=== PATIENT | male | born 1945 | race Caucasian/White ===

== ENCOUNTER 2024-11-18 13:48 | Emergency (ER) | payer MEDICARE, SELFPAY ==
[2024-11-18] VITALS (9 sets, daily range): BP systolic 97–145; BP diastolic 56–89; PULSE 78–94; RESP 11–20; TEMP 36.6–36.8; O2SAT 89–97; BMI 18.2
--- NOTE | 2024-11-18 14:44 | XR_ITS ---
Examination: AP chest single view TECHNIQUE: AP portable upright chest single view Exam date and time: November 18, 2024 1452 hours Comparison June 29, 2024 INDICATIONS: Upper abdominal pain coughing congestion shortness of breath today. FINDINGS: COPD with large bullous areas in both lungs Accentuation of bronchovascular markings Normal heart size Early pneumonia right base IMPRESSION: COPD Early pneumonia right base
[2024-11-18] MEDS: KETOROLAC INJ 30 MG/ML VIAL 15 MG IVP (15:03)
[2024-11-18] MEDS: SODIUM CHLORIDE 0.9% 1000 ML 1,000 ML 999 ML IV (15:04)
--- NOTE | 2024-11-18 15:07 | PD.EDABDPN ---
ED Abdominal Pain RME/HPI General Chief Complaint: Abdominal Pain Stated complaint: ABD PAIN Time seen by provider: 11/18/24 14:35 Arrival date/time: 11/18/24 13:48 Limitations: no limitations RME / HPI RME / HPI narrative: DR. LOWERY MAIN ED EVALUATION: 79 year old male presents to the Emergency Department with complaint of upper abdominal pain for approximately one week. Symptoms are moderate. He has an appointment with his doctor, but not till the end of next week so he comes to the emergency department today. He denies increasing shortness of breath, increasing need for oxygen, or cough. He denies postprandial pain. He notes, intermittent, diarrhea, and constipation, with constipated bowel movements. He feels increasing pain at those times. He denies fever, chills, or sweats. He does have some mild to moderate bilateral right upper and left upper abdominal pain. PMHx: COPD on 2L home O2, pneumothorax in 2020, diverticulitis. Social Hx: Former smoker. Related Data Home Medications ?Medication ?Instructions ?Recorded ?Confirmed hydrocodone 10 mg-acetaminophen 1 tab PO Q8H PRN Pain #0 tabs 06/01/17 06/21/21 325 mg tablet albuterol sulfate 90 mcg/actuation 2 puff inhalation TID PRN Wheezing 06/19/21 06/21/21 aerosol inhaler (Ventolin HFA) alendronate 70 mg tablet 70 mg PO QWEEK 06/19/21 06/21/21 baclofen 10 mg tablet 10 mg PO BID 06/19/21 06/21/21 cyclobenzaprine 10 mg tablet 10 mg PO HS 06/19/21 06/21/21 fluticasone furoate 200 1 inh inhalation DAILY 06/19/21 06/21/21 mcg-vilanterol 25 mcg/dose inhalation powder (Breo Ellipta) gabapentin 300 mg capsule 300 mg PO BID 06/19/21 06/21/21 ipratropium 20 mcg-albuterol 100 1 puff inhalation BID 06/19/21 06/21/21 mcg/actuation mist for inhalation (Combivent Respimat) pantoprazole 40 mg tablet,delayed 40 mg PO QDAY 06/19/21 06/21/21 release sucralfate 1 gram tablet 1 g PO BID 06/19/21 06/21/21 Previous Rx's ?Medication ?Instructions ?Recorded hydrocodone 5 mg-acetaminophen 325 1 tab PO BID PRN pain #14 tabs 07/21/23 mg tablet levofloxacin 500 mg tablet 500 mg PO QDAY #4 tabs 02/11/24 prednisone 50 mg tablet 50 mg PO QDAY #7 tabs 06/29/24 Allergies Allergy/AdvReac Type Severity Reaction Status Date / Time No Known Allergies Allergy Verified 06/29/24 12:25 Review of Systems Review of Systems Systems Reviewed: All systems reviewed, normal except as documented Narrative Review of Systems: GEN: No fever, no chills, no weight loss EYES: No discharge, no visual changes, no pain HEENT: No ear pain, no congestion, no sore throat PULM: No shortness of breath, no cough, no congestion CV: No chest pain, no dyspnea on exertion, no palpitations GI: No nausea, no vomiting, + intermittent diarrhea and constipated bowels (see HPI), + upper abdominal pain : No frequency, no urgency and no dysuria MUSC/SKEL: No joint pain, no back pain SKIN: No rash PSYCH: No hallucinations, no depression HEME/LYMPH: No easy bleeding or bruising tendencies NEURO: No weakness, no headache Past Medical History Past Medical History NEUROLOGIC: Positive Neurological Disorders and Migraine RESPIRATORY: Positive Chronic Obstructive Pulmonary Disease (COPD) and Emphysema GASTROINTESTINAL: Positive Gastrointestinal Disorders, Diverticulitis and Gastroesophageal Reflux Disease MUSCULOSKELETAL: Positive Musculoskeletal Disorders and Arthritis ENT: Positive Cataracts OTHER HISTORY: Positive Hospitalization Family History FAMILY HISTORY: Negative Family Psychiatric Problems, Family Respiratory Disorders, Family Cardiac Disorders, Family Gastrointestinal Problems, Family Cancer, Family Surgery or Family Anesthesia Reaction Social History SMOKING STATUS: Former smoker SECOND HAND EXPOSURE: No SUBSTANCE USE: does not use ALCOHOL: Never ED Exam General Limitations: Present no limitations General appearance: Present alert Head Head exam: Present atraumatic Eye Eye exam: Present normal appearance, PERRL and EOMI ENT ENT exam: Present normal exam, normal oropharynx and mucous membranes moist Neck Neck exam: Present normal inspection, full ROM and trachea midline Chest Chest inspection: Present normal inspection and symmetric chest wall rise Respiratory Respiratory exam: Present normal lung sounds bilaterally Cardiovascular Cardiovascular exam: Present regular rate, normal rhythm and normal heart sounds Abdominal Exam Abdominal exam: Present soft, tenderness (mild to moderate bilateral right upper and left upper abdominal pain) and normal bowel sounds Extremities Exam Extremities exam: Present normal inspection and full ROM Back Exam Back exam: Present normal inspection and full ROM Neurological Exam Neurological exam: Present alert, oriented X3 and CN II-XII intact Psychiatric Psychiatric exam: Present normal affect and normal mood Skin Skin exam: Present warm, dry, intact and normal color Course Course Course Narrative: 1800: Patient was signed out to Dr. Alston. Past medical, surgical, social and family history reviewed. Vitals and home medications reviewed. Results and treatment plan discussed. They will assume the care of the patient at this time and will follow the patient, pending gall bladder US, abdomen/pelvis CT, and final disposition. Quality Measures none Orders Category Date Time Status CT Screening NOW Care 11/18/24 16:26 Active MRI Screening NOW Care 11/19/24 04:[address] abdomen pelvis w con Stat Exams 11/18/24 16:26 Completed MR MRCP Stat Exams 11/19/24 Ordered US gall bladder Stat Exams 11/18/24 16:23 Completed XR chest 1V Stat Exams 11/18/24 14:44 Completed CBC Stat Lab 11/18/24 15:00 Completed CMP [Comprehensive Metabolic Panel] Stat Lab 11/18/24 15:00 Completed Lactate (Lactic Acid) Stat Lab 11/18/24 15:00 Completed Lipase Stat Lab 11/18/24 15:00 Completed Procalcitonin Stat Lab 11/18/24 15:00 Completed Ketorolac Inj [Toradol Inj] Med 11/18/24 14:43 Discontinued 15 mg IVP X1 ONE Morphine Inj Med 11/18/24 19:13 Discontinued 2 mg IVP Q30M PRN Ondansetron Inj [Zofran Inj] Med 11/18/24 19:14 Discontinued 4 mg IV X1 ONE Sodium Chloride 0.9% 1000 ml [Ns] 1,000 ml Med 11/18/24 14:43 Discontinued IV 999 mls/hr Vital Signs Vital signs: Vital Signs Temperature 98.3 F 11/18/24 13:50 Pulse Rate 94 11/18/24 13:50 Respiratory Rate 20 11/18/24 13:50 Blood Pressure 117/80 11/18/24 13:50 Pulse Oximetry (%) 97 11/18/24 13:50 Oxygen Delivery Method Nasal Cannula 11/18/24 13:50 Oxygen Flow Rate 4 11/18/24 13:50 Abdominal Pain MDM MDM Narrative MDM Narrative:: I, Marisol Teo, am scribing for and in the presence of Dr. Lowery. Patient data External records reviewed:: [facility] previous records (Reviewed last ED visit dated 06/29/24, discharged with the following: COPD exacerbation.) Clinical information provided by:: patient Social determinants that could affect healthcare access:: other (specify) (Former smoker.) Patient has the following chronic illnesses:: COPD on 2L home O2, pneumothorax in 2020, diverticulitis. How is presenting disease/condition affected by chronic disease/condition?: exacerbated by Evaluation data The following diagnostics were reviewed and interpreted by me:: lab results and radiology exam(s) Lab and/or radiology exams considered but not ordered:: none Interpretation Summary: Procedure(s): XR chest 1V Accession Number(s): [id number] cc: Gonzalo Lowery MD; Chris Martinez MD~ Examination: AP chest single view TECHNIQUE: AP portable upright chest single view Exam date and time: November 18, 2024 1452 hours Comparison June 29, 2024 INDICATIONS: Upper abdominal pain coughing congestion shortness of breath today. FINDINGS: COPD with large bullous areas in both lungs Accentuation of bronchovascular markings Normal heart size Early pneumonia right base IMPRESSION: COPD Early pneumonia right base Dictated By: Chris Martinez MD Medications / Prescriptions Medications or Prescriptions considered but not ordered:: none Medication administrations:: Medication Administration History Discontinued Medications Sodium Chloride (Ns) 1,000 mls @ 999 mls/hr IV .Q1H1M ONE Stop: 11/18/24 15:43 Last Infusion: 11/18/24 16:45 Dose: Infused Documented By: Admin: 11/18/24 15:04 Dose: 999 mls/hr Documented By: VEDA Ketorolac Tromethamine (Ketorolac Inj 30 Mg/Ml Vial) 15 mg IVP X1 ONE Stop: 11/18/24 14:44 Last Admin: 11/18/24 15:03 Dose: 15 mg Documented By: VEDA Morphine Sulfate (Morphine Sulf Inj 10 Mg/Ml Vial) 2 mg IVP Q30M PRN PRN Reason: PAIN Last Admin: 11/19/24 05:40 Dose: 2 mg Documented By: Admin: 11/18/24 23:00 Dose: 2 mg Documented By: Admin: 11/18/24 20:08 Dose: 2 mg Documented By: RICHARD Ondansetron HCl (Ondansetron Inj 2 Mg/Ml Inj 2 Ml) 4 mg IV X1 ONE; Protocol Stop: 11/18/24 19:15 Last Admin: 11/18/24 20:07 Dose: 4 mg Documented By: RICHARD see above Consultations Consultation(s) initiated? (list below): No Diagnosis Differential diagnosis abdominal pain: abdominal pain, constipation, diverticulitis, gastroenteritis, pancreatitis and small bowel obstruction Most likely diagnosis given after review of the tests above:: No official diagnoses at this time, still pending diagnostic tests. Patient signout to the manufacturing supervisor 2nd shift provider. Admission Indicated Admission indicated?: not indicated Explain why admission is indicated or not indicated:: No final disposition plan at this time, still pending diagnostic tests. Patient signout to the manufacturing supervisor 2nd shift provider. Admission Request Was there a request for admission?: No Disposition Plan Disposition Plan: other (specify) (Patient signout to the manufacturing supervisor 2nd shift provider.) Discharge Plan Prescriptions/Referrals Prescriptions/Med Rec: No Action hydrocodone-acetaminophen [Bailey] 10-325 mg Tablet 1 tab PO Q8H PRN (Reason: Pain) Qty: 0 cyclobenzaprine 10 mg tablet 10 mg PO HS alendronate 70 mg tablet 70 mg PO QWEEK Patient Comments: TAKE 1 TABLET BY MOUTH 1 TIME A WEEK baclofen 10 mg tablet 10 mg PO BID Patient Comments: TAKE 1 TABLET BY MOUTH TWICE DAILY WITH FOOD OR MILK Breo Ellipta 200-25 mcg/dose blister with device 1 inh INHALATION DAILY Patient Comments: INHALE 1 PUFF BY MOUTH EVERY DAY Combivent Respimat 20-100 mcg/actuation mist 1 puff INHALATION BID Patient Comments: INHALE 1 PUFF BY MOUTH TWICE DAILY sucralfate 1 gram tablet 1 g PO BID Patient Comments: TAKE 1 TABLET BY MOUTH TWICE DAILY ON AN EMPTY STOMACH pantoprazole 40 mg tablet,delayed release (DR/EC) 40 mg PO QDAY Patient Comments: TAKE 1 TABLET BY MOUTH EVERY DAY gabapentin 300 mg capsule 300 mg PO BID Patient Comments: TAKE 1 CAPSULE BY MOUTH TWICE DAILY albuterol sulfate [Ventolin HFA] 90 mcg/actuation HFA aerosol inhaler 2 puff INHALATION TID PRN (Reason: Wheezing) Patient Comments: INHALE 2 PUFFS BY MOUTH THREE TIMES DAILY NEEDED hydrocodone-acetaminophen 5-325 mg tablet 1 tab PO BID MDD 10 PRN (Reason: pain) Qty: 14 0RF levofloxacin 500 mg tablet 500 mg PO QDAY Qty: 4 0RF prednisone 50 mg tablet 50 mg PO QDAY Qty: 7 0RF Referrals: Luke Saab PA-C [Primary Care Provider] - In 1 week Problem List Clinical Impression: Abdominal pain, Elevated bilirubin Patient/Caregiver Discharge Instructions Print Language: Yakut
[2024-11-18 15:26] LABS: Basophils # (Auto) 0.1 Thou/mm3 (0.0-0.2); Basophils % (Auto) 1 % (0-2.5); Eosinophils # (Auto) 0.1 Thou/mm3 (0.0-0.5); Eosinophils % (Auto) 1 % (0-10); Hematocrit 43.4 % (41.0-53.0); Hemoglobin 14.3 g/dL (13.5-16.0); Immature Granulocytes % (Auto) 0 % (0-0); Immature Granulocytes Auto 0.04 Thou/mm3 (0.00-0.00); Lymphocytes # (Auto) 1.7 Thou/mm3 (1.0-4.8); Lymphocytes % (Auto) 16 % (10-50); Mean Corpuscular HGB Conc 32.9 g/dl (31.0-37.0); Mean Corpuscular Hemoglobin 31.2 pg (25.0-35.0); Mean Corpuscular Volume 95 fL (80-100); Monocytes # (Auto) 0.5 Thou/mm3 (0.0-0.8); Monocytes % (Auto) 5 % (0-12); Neutrophils # (Auto) 8.2 Thou/mm3 (1.8-7.7); Neutrophils % (Auto) 77 % (37-80); Nucleated Red Blood Cell % 0 /100 WBC (0); Platelet Count 386 Thou/mm3 (140-440); RDW Standard Deviation 48.7 fL (35.1-43.9); Red Blood Count 4.58 Miln/mm3 (4.50-5.90); White Blood Count 10.6 Thou/mm3 (3.8-10.6)
[2024-11-18 15:38] LABS: Alanine Aminotransferase 48 U/L (10-49); Albumin/Globulin Ratio 1.4 (1.2-2.2); Alkaline Phosphatase 493 U/L (46-116); Anion Gap 6 (7-16); Aspartate Amino Transferase 30 U/L (0-34); BUN/Creatinine Ratio 13 Ratio (12-20); Bilirubin,Total 2.5 mg/dL (0.3-1.2); Blood Urea Nitrogen 9 mg/dL (9-23); Calcium 9.5 mg/dL (8.3-10.6); Calcium (Corrected) 9.5 mg/dL (8.5-10.1); Carbon Dioxide 28.4 mMol/L (20.0-31.0); Chloride 101 mMol/L (98-107); Creatinine (Component) 0.7 mg/dL (0.6-1.3); Estimated Creatinine Clearance 79.6 mL/min (>60); Globulin 2.9 gm/dL (2.3-3.5); Glucose 98 mg/dL (74-106); Lipase 41 U/L (12-53); Osmolality,Calculated 268 (275-295); Potassium 3.7 mMol/L (3.4-5.1); Procalcitonin 0.24 ng/ml (0.0-0.49); Sodium 135 mMol/L (136-145); Total Protein 6.9 gm/dL (5.7-8.2); eGFR > 60 See Note
--- NOTE | 2024-11-18 16:23 | XR_ITS ---
Examination: Abdomen sonogram, Limited Date and time of exam: November 18, 2024 1757 hrs. Indications: Right upper abdominal pain one week with elevated liver function tests on laboratory examination today Technique: Real-time soto scale transabdominal sonographic images of the upper abdomen obtained. Findings: Cholelithiasis Gallbladder wall 0.35 cm no edema Common bile duct 0.5 cm Pancreatic head 2.5 cm Liver 17.9 cm fatty infiltration no focal liver lesions Normal hepatopedal portal venous oh Patent IVC Impression: Cholelithiasis, negative for cholecystitis Hepatomegaly fatty liver
--- NOTE | 2024-11-18 16:26 | XR_ITS ---
Examination: CT abdomen with intravenous contrast CT pelvis with intravenous contrast 2-D coronal reconstructions 2-D sagittal reconstructions Date and time of exam:November 18, [address] chest abdomen pelvis June 21, 2021 Indications: Onset epigastric pain today. CTDI: vol (mGy) 6.62 DLP: (mGycm) 352 Technique: Multiple axial sections of the abdomen and pelvis have been obtained. 64 slice high-resolution scanner used. 3 mm axial sections have been obtained, post intravenous injection 60 cc [id number] 2-D sagittal, coronal reconstructions obtained. Low dose protocols were performed. One or more of the following dose reduction techniques were used; automated exposure control, adjustment of the mA and/or KV according to patient size, use of iterative reconstruction technique. Findings: COPD with severe bullous change in the lower lung zones Mild gastric mucosal edema No focal liver lesions, fatty infiltration is present Distended gallbladder with gallstones, possible gallbladder wall thickening Splenic cyst again noted No pancreatic mass No renal or ureteral calculi, no hydronephrosis Heavy abdominal aortic calcification Normal appendix No bowel obstruction No diverticulitis No bladder mass Air distended rectum Transverse prostate dimension 5.2 cm Severe osteopenia with chronic compressive changes L4, L3, L2, L1 Advanced degenerative disc disease L4-L5, L5-S1 Impression: COPD with severe bullous changes Gastritis pattern Recommend gallbladder sonography follow-up to exclude acute calculus cholecystitis Normal appendix No bowel obstruction or diverticulitis
--- NOTE | 2024-11-18 18:03 | PC.NURSE ---
artificial breeding technician at bedside obtaining images.
--- NOTE | 2024-11-18 18:13 | PD.EDADDENDU ---
Emergency Room Addendum Addendum Narrative: 1800: Care assumed from Dr. Jolley, the previous shift emergency physician. Past medical, surgical, social and family history reviewed. Vitals and home medications reviewed. Results and treatment plan discussed. I will assume the care of the patient at this time and will follow the patient, pending US gallbladder and final disposition. Please refer to the emergency department record for history and examination from initial visit. 1833: 79yo male presents to the ED for a chief complaint of intermittent RUQ pain x 1 week. Patient states his pain got progressively worse today, reporting he also felt dizzy and his pain worsened after eating this morning, so he came in for evaluation. He reports associated nausea, but no vomiting. He denies any history of similar symptoms. He currently rates his pain a 7 out of 10 in severity. Pain medication ordered. CXR does not show any infiltrate, according to my interpretation. Patient does not have any signs or symptoms of pneumonia at this time and does not need to be treated for it. The patient was placed in ED observation care at 11/19/24 at 2000 hours. The patient was placed in ED observation care because of pending MRCP. The patients past medical history, social history, and family history were reviewed. The plan of care will include serial examinations. 0600: Care signed out to Dr. Jolley (emergency physician). Past medical, surgical, social and family history reviewed. Vitals and home medications reviewed. Results and treatment plan discussed. They will assume the care of the patient at this time and will follow the patient, pending MRCP. RADIOLOGY RESULTS: [facility] Report Signed Patient: YVONNE DEGROOT [facility]. Record#: [id number] Birthdate: 1945 Age/Sex: 79 / M Location: [facility] Attending Dr: Ordering Physician: Gonzalo Jolley MD Date of Service: 11/18/24 Procedure(s): US gall bladder Accession Number(s): [id number] cc: Gonzalo Jolley MD; Chris Martinez MD; Luke Saab PA-C~ Examination: Abdomen sonogram, Limited Date and time of exam: November 18, 2024 1757 hrs. Indications: Right upper abdominal pain one week with elevated liver function tests on laboratory examination today Technique: Real-time soto scale transabdominal sonographic images of the upper abdomen obtained. Findings: Cholelithiasis Gallbladder wall 0.35 cm no edema Common bile duct 0.5 cm Pancreatic head 2.5 cm Liver 17.9 cm fatty infiltration no focal liver lesions Normal hepatopedal portal venous oh Patent IVC Impression: Cholelithiasis, negative for cholecystitis Hepatomegaly fatty liver Dictated By: Chris Martinez MD Signed By: <Electronically signed by Chris Martinez MD in [place]> 11/18/241916
[2024-11-18] MEDS: ONDANSETRON INJ 2 MG/ML INJ 2 ML 4 MG IV (20:07)
[2024-11-18] MEDS: MORPHINE SULF INJ 10 MG/ML VIAL 2 MG IVP ×2 (20:08→23:00)
[2024-11-19] VITALS (11 sets, daily range): BP systolic 99–125; BP diastolic 57–76; PULSE 75–86; RESP 12–21; TEMP 36.4–36.8; O2SAT 92–96
--- NOTE | 2024-11-19 | XR_ITS ---
MRI abdomen, without contrast. MRCP Date and time of exam: November 11, 2024 1306 hrs. Indications: Upper abdominal pain elevated liver function tests on laboratory examination today, gallstones on ultrasound study today Technique: Multiple axial and coronal images of the abdomen have been obtained with the Siemens 1.5T MRI scanner. Images obtained included T1 weighted transverse images, T2-weighted transverse images, T2-weighted transverse images fat-suppressed, T2 weighted haste fat suppressed transverse images, T1 weighted images, in and out of phase images, T2-weighted coronal images, breath hold, T2 weighted haze coronal images as well as T2 weighted coronal thick slab images, MRCP. Findings: Intrahepatic biliary tract dilatation Distended gallbladder with multiple gallstones Extrahepatic biliary tract dilatation, common hepatic duct enlarged 8 mm with impacted 11 mm stone Spleen is not enlarged No ascites No hydronephrosis 29 mm cystic lesion in the spleen Impression: Extrahepatic biliary tract obstruction secondary to 11 mm impacted stone in the distal common bile duct
[2024-11-19] MEDS: MORPHINE SULF INJ 10 MG/ML VIAL 2 MG IVP (05:40)
--- NOTE | 2024-11-19 07:31 | EDNOTE_ITS ---
Emergency Room Addendum Addendum Narrative: 0600 care assumed by previous shift provider. Past medical, surgical, social and family history reviewed. Vitals and home medications reviewed. Results and treatment plan discussed. I will assume the care of the patient at this time and will follow the patient, pending final disposition. Follow-up MRCP positive for an 11 mm impacted stone in the common bile duct. Case was discussed with the transfer service and has been communicated with [facility] and has been accepted for transfer for higher level of care GI with ERCP. Excepting provider is Dr. Tripathi. All results, management, and treatment plan was discussed with the patient and he is amenable to transfer. Ordering Physician: Tito Alston MD Date of Service: 11/19/24 Procedure(s): MR MRCP Accession Number(s): [id number] cc: Chris Martinez MD; Tito Alston MD; Luke Saab PA-C~ MRI abdomen, without contrast.MRCP Date and time of exam: November 11, 2024 1306 hrs. Indications: Upper abdominal pain elevated liver function tests on laboratory examination today, gallstones on ultrasound study today Technique: Multiple axial and coronal images of the abdomen have been obtained with the Siemens 1.5T MRI scanner. Images obtained included T1 weighted transverse images, T2-weighted transverse images, T2-weighted transverse images fat-suppressed, T2 weighted haste fat suppressed transverse images, T1 weighted images, in and out of phase images, T2-weighted coronal images, breath hold, T2 weighted haze coronal images as well as T2 weighted coronal thick slab images, MRCP. Findings: Intrahepatic biliary tract dilatation Distended gallbladder with multiple gallstones Extrahepatic biliary tract dilatation, common hepatic duct enlarged 8 mm with impacted 11 mm stone Spleen is not enlarged No ascites No hydronephrosis 29 mm cystic lesion in the spleen Impression: Extrahepatic biliary tract obstruction secondary to 11 mm impacted stone in the distal common bile duct Dictated By: Chris Martinez MD Signed By: <Electronically signed by Chris Martinez MD in [place]> 11/19/24 2106
--- NOTE | 2024-11-19 08:03 | PC.NURSE ---
Patient up to restroom, awake and alert. Patient waiting for MRI procedure. No distress noted. Call light within reach.
[2024-11-19] MEDS: MORPHINE SULF INJ 10 MG/ML VIAL 4 MG IVP ×3 (11:23→18:18)
--- NOTE | 2024-11-19 14:39 | PC.CM ---
Addendum entered by Shalom Cui RN 11/19/24 15:39: 1539- Received call from KAVYA Bocanegra at [facility] informing me that Dr. Sanford, Gastroenterology is able to accept patient for ERCP, phone number for report [phone]. Phone number and accepting information provided to ER FADI Narvaez. Addendum entered by Shalom Cui RN 11/19/24 15:28: 1523-Received call from KAVYA Armstrong at [facility] and provided clinicals, she will review with her physician and return call if they are able to accept. Original Note: Received call from ER MD Gonzalo Jolley requesting transfer for ERCP. Packet created and sent to [facility], [facility], and [facility]. CD created and transfer packet created.
--- NOTE | 2024-11-19 18:26 | PC.NURSE ---
Report given to Sonja HOFF at [facility], eta given of 1.5 hrs via ambulance. Patient transferring for [facility] for ERCP.
== END 2024-11-19 18:21 | disposition short-term general hospital (02) ==
PROVIDERS: Emergency Provider Emergency Medicine; PCP Physician Assistant
DX: K80.21 Calculus of gallbladder without cholecystitis with obstruction (principal); K76.0 Fatty (change of) liver, not elsewhere classified; J43.9 Emphysema, unspecified; J44.0 Chronic obstructive pulmonary disease with (acute) lower respiratory infection; J18.9 Pneumonia, unspecified organism; Z87.891 Personal history of nicotine dependence; Z75.1 Person awaiting admission to adequate facility elsewhere
CPT/HCPCS: 36415; 71045; 74177; 76705; 80053; 83605; 83690; 84145; 85025; 87040; 96361; 96374; 96375; 96376; 99285; A4649; J1885; J2270; J2405; J7030; Q9967; S8037; 74181

== ENCOUNTER 2024-11-24 18:20 | Inpatient (IN) | payer MEDICARE, MEDICAID, SELFPAY ==
[2024-11-24] VITALS (10 sets, daily range): BP systolic 123–158; BP diastolic 78–97; PULSE 73–99; RESP 19–46; TEMP 36.5–37; O2SAT 95–99
--- NOTE | 2024-11-24 18:36 | XR_ITS ---
Examination: CT brain head without contrast. 2-D sagittal coronal reconstructions Date and time of exam:November 24, 2024 at 1945 hrs. Comparison July 21, 2023 Indications: Onset altered mental status today CTDI: vol (mGy):49.8 DLP: (mGycm):1001 Technique: Multiple CT axial sections of the brain have been obtained, 5 mm slice thickness. Contrast has not been administered. 2-D sagittal, coronal reconstructions have been obtained Low dose protocols were performed. One or more of the following dose reduction techniques were used; automated exposure control, adjustment of the mA and/or KV according to patient size, use of iterative reconstruction technique. Findings: No significant ventricular enlargement. Intra-axial or extra-axial hemorrhage density is not seen. No mass effect or midline shift Basal cisterns are not remarkable. Fourth ventricle is midline. Cranial vault intact. Impression: Continual patient motion significantly degrades image quality No gross hemorrhage mass effect or midline shift Advise clinical correlation and follow-up accordingly
--- NOTE | 2024-11-24 18:36 | EKG_ITS ---
[facility] Test Date: 2024-11-24 Pat Name: YVONNE DEGROOT Department: Room: - Gender: Male Forensic Psychologist: : 1945 Requested By: [facility] ([facility]) Teresa Order Number: [id number] Reading MD: [facility] ([facility]) Teresa Measurements Intervals [place] Rate: 89 P: 76 GA: 168 QRS: -74 QRSD: 95 T: 75 QT: 350 QTc: 427 Interpretive Statements SINUS RHYTHM WITH OCCASIONAL SUPRAVENTRICULAR PREMATURE COMPLEXES LEFT ANTERIOR FASCICULAR BLOCK [QRS AXIS <= -45, QR IN I, RS IN II] ANTEROSEPTAL MYOCARDIAL INFARCTION , OF INDETERMINATE AGE [40+ ms Q WAVE IN V1-V4] Compared to ECG 02/11/2024 16:10:25 Sinus tachycardia no longer present Myocardial infarct finding still present /[id number]/[id number].pdf
[2024-11-24] MEDS: SODIUM CHLORIDE 0.9% 1000 ML 1,000 ML 999 ML IV (19:25)
[2024-11-24 19:26] LABS: Basophils # (Auto) 0.1 Thou/mm3 (0.0-0.2); Basophils % (Auto) 1 % (0-2.5); Eosinophils # (Auto) 0.1 Thou/mm3 (0.0-0.5); Eosinophils % (Auto) 2 % (0-10); Hematocrit 39.5 % (41.0-53.0); Hemoglobin 13.4 g/dL (13.5-16.0); Immature Granulocytes % (Auto) 0 % (0-0); Immature Granulocytes Auto 0.01 Thou/mm3 (0.00-0.00); Lymphocytes # (Auto) 1.8 Thou/mm3 (1.0-4.8); Lymphocytes % (Auto) 20 % (10-50); Mean Corpuscular HGB Conc 33.9 g/dl (31.0-37.0); Mean Corpuscular Hemoglobin 31.4 pg (25.0-35.0); Mean Corpuscular Volume 93 fL (80-100); Monocytes # (Auto) 0.7 Thou/mm3 (0.0-0.8); Monocytes % (Auto) 8 % (0-12); Neutrophils # (Auto) 6.2 Thou/mm3 (1.8-7.7); Neutrophils % (Auto) 69 % (37-80); Nucleated Red Blood Cell % 0 /100 WBC (0); Platelet Count 376 Thou/mm3 (140-440); RDW Standard Deviation 47.1 fL (35.1-43.9); Red Blood Count 4.27 Miln/mm3 (4.50-5.90); White Blood Count 8.9 Thou/mm3 (3.8-10.6)
[2024-11-24 19:29] LABS: Ammonia 20 uMol/L (11-32)
[2024-11-24 19:34] LABS: INR 1.1 (0.9-1.3); Partial Thromboplastin Time 26.8 Seconds (22.0-36.0); Prothrombin Time 11.7 Seconds (9.0-12.2)
--- NOTE | 2024-11-24 19:58 | PD.EDOVER ---
ED Overdose RME/HPI General Chief Complaint: Overdose Stated Complaint: OD Time Seen by Provider: 11/24/24 18:36 Source: patient Arrival date/time: 11/24/24 18:20 This is a 79-year-old male who presented to the emergency department via EMS for complaints of altered mental status. According to the EMS personnel patient was found at home with some possible agonal breathing was given Narcan with response. Positive history of opiate use. According to the EMS the granddaughter had been giving the patient oxycodone and [place] status post a ERCP last week in [place]. Patient was given a second dose upon arrival with response. No family at bedside. Mode of arrival: ambulatory Related Data Home Medications ?Medication ?Instructions ?Recorded ?Confirmed hydrocodone 10 mg-acetaminophen 1 tab PO Q8H PRN Pain #0 tabs 06/01/17 06/21/21 325 mg tablet albuterol sulfate 90 mcg/actuation 2 puff inhalation TID PRN Wheezing 06/19/21 06/21/21 aerosol inhaler (Ventolin HFA) alendronate 70 mg tablet 70 mg PO QWEEK 06/19/21 06/21/21 baclofen 10 mg tablet 10 mg PO BID 06/19/21 06/21/21 cyclobenzaprine 10 mg tablet 10 mg PO HS 06/19/21 06/21/21 fluticasone furoate 200 1 inh inhalation DAILY 06/19/21 06/21/21 mcg-vilanterol 25 mcg/dose inhalation powder (Breo Ellipta) gabapentin 300 mg capsule 300 mg PO BID 06/19/21 06/21/21 ipratropium 20 mcg-albuterol 100 1 puff inhalation BID 06/19/21 06/21/21 mcg/actuation mist for inhalation (Combivent Respimat) pantoprazole 40 mg tablet,delayed 40 mg PO QDAY 06/19/21 06/21/21 release sucralfate 1 gram tablet 1 g PO BID 06/19/21 06/21/21 Previous Rx's ?Medication ?Instructions ?Recorded hydrocodone 5 mg-acetaminophen 325 1 tab PO BID PRN pain #14 tabs 07/21/23 mg tablet levofloxacin 500 mg tablet 500 mg PO QDAY #4 tabs 02/11/24 prednisone 50 mg tablet 50 mg PO QDAY #7 tabs 06/29/24 Allergies Allergy/AdvReac Type Severity Reaction Status Date / Time No Known Allergies Allergy Verified 11/24/24 18:57 Review of Systems Review of Systems ROS Unobtainable: unobtainable due to mental status Narrative Review of Systems: e ED Exam Narrative Physical exam: VITAL SIGNS: Reviewed. GENERAL APPEARANCE: Awake however not responsive, responds to painful stimuli, does not follow command. HEAD AND FACE: Non-traumatic. ENT: PERRL, pink conjunctivitis, eyelid no trauma, Mucous membrane moist. NECK: Supple, nontender, no nuchal rigidity. CHEST: No tenderness, no crepitus, no paradoxical movement, + ronchi, bilateral lung bases, no stridor, decreased breath sounds bilaterally. HEART: Regular rate, regular rhythm, no murmur, no gallops. ABDOMEN: Soft, positive bowel sounds, nondistended, no guarding, nontender, no rebound, no masses, RECTAL: Deferred. GENITAL: Deferred. NEUROLOGICAL: Gross motor function intact sensory function intact, Appropriate for age. MUSCULOSKELETAL: full range of motion. EXTREMITIES: Nontender, full range of motion. SKIN: Color pink, dry, no rash, no lacerations, no abrasions, no contusions. LYMPHATICS: Deferred. Course Quality Measures none Orders Category Date Time Status Bedside Blood Glucose NOW Care 11/24/24 18:36 Active COVID-19 Screening Questionnaire NOW Care 11/24/24 22:28 Active Decision to Admit X1 Care 11/24/24 22:28 Active EKG (ED ONLY) *Do not use* NOW Care 11/24/24 18:36 Completed Insert IV NOW Care 11/24/24 18:36 Active NPO NOW Care 11/24/24 18:[address] head/brain wo con Stat Exams 11/24/24 18:36 Completed EKG (ED Only) Stat Exams 11/24/24 18:36 Draft XR chest 2V Stat Exams 11/24/24 21:59 Completed Acetaminophen Stat Lab 11/24/24 18:55 Completed Alcohol, Blood Medical Stat Lab 11/24/24 18:55 Completed Ammonia Stat Lab 11/24/24 18:55 Completed CBC Stat Lab 11/24/24 18:55 Completed Comprehensive Metabolic Panel Stat Lab 11/24/24 18:55 Completed Drug Screen,Urine Stat Lab 11/24/24 19:51 Completed Partial Thromboplastin Time Stat Lab 11/24/24 18:55 Completed Prothrombin Time with INR Stat Lab 11/24/24 18:55 Completed Troponin I Stat Lab 11/24/24 18:55 Completed Urinalysis Stat Lab 11/24/24 19:51 Completed Dextrose 5%-Water [D5w] 498 ml Med 11/24/24 18:45 Active NALOXONE INJ (Syringe) [Narcan Inj (Syringe)] 2 mg IV 10 mls/hr Sodium Chloride 0.9% 1000 ml [Ns] 1,000 ml Med 11/24/24 18:38 Discontinued IV 999 mls/hr Vital Signs Vital signs: Vital Signs Temperature 98.6 F 11/24/24 18:24 Pulse Rate 73 11/24/24 18:24 Respiratory Rate 22 H 11/24/24 18:24 Blood Pressure 150/94 H 11/24/24 18:24 Pulse Oximetry (%) 95 11/24/24 18:24 Oxygen Delivery Method Nasal Cannula 11/24/24 18:24 Oxygen Flow Rate 4 11/24/24 18:24 Overdose MDM Narrative MDM Narrative:: This is an 79-year-old male who presented to the emergency department for possible overdose. According to EMS patient has been taking oxycodone and Buck[place] at home for recent procedure. Patient was given Narcan with response x 2. However after 4 hours of observation patient has not fully returned to GCS of 15. Patient CT is grossly negative. Patient's labs reviewed no acute abnormality labs reassuring. Urine drug screen positive for opiates. Did receive a liter of fluids. Chest x-ray pending rule out aspiration pneumonia. I did speak with hospitalist who will possibly admit for observation. Patient data External records reviewed:: [facility] previous records Clinical information provided by:: EMS Social determinants that could affect healthcare access:: other (specify) Patient has the following chronic illnesses:: copd How is presenting disease/condition affected by chronic disease/condition?: uneffected by Evaluation data The following diagnostics were reviewed and interpreted by me:: lab results, radiology exam(s) and EKG tracing(s) Lab and/or radiology exams considered but not ordered:: Yes Interpretation Summary: Examination: CT brain head without contrast. 2-D sagittal coronal reconstructions Date and time of exam:November 24, 2024 at 1945 hrs. Comparison July 21, 2023 Indications: Onset altered mental status today CTDI: vol (mGy):49.8 DLP: (mGycm):1001 Technique: Multiple CT axial sections of the brain have been obtained, 5 mm slice thickness. Contrast has not been administered. 2-D sagittal, coronal reconstructions have been obtained Low dose protocols were performed. One or more of the following dose reduction techniques were used; automated exposure control, adjustment of the mA and/or KV according to patient size, use of iterative reconstruction technique. Findings: No significant ventricular enlargement. Intra-axial or extra-axial hemorrhage density is not seen. No mass effect or midline shift Basal cisterns are not remarkable. Fourth ventricle is midline. Cranial vault intact. Impression: Continual patient motion significantly degrades image quality No gross hemorrhage mass effect or midline shift Advise clinical correlation and follow-up accordingly Medications / Prescriptions Medications or Prescriptions considered but not ordered:: no Medication administrations:: Medication Administration History Naloxone HCl 2 mg/ Dextrose 500 mls @ 10 mls/hr IV .Q24H DANTE Stop: 12/24/24 18:44 Last Admin: 11/24/24 22:26 Dose: Not Given Documented By: PEGGY Non-Admin Reason: Other, see note Discontinued Medications Sodium Chloride (Ns) 1,000 mls @ 999 mls/hr IV .Q1H1M ONE Stop: 11/24/24 19:38 Last Infusion: 11/24/24 20:48 Dose: Infused Documented By: Admin: 11/24/24 19:25 Dose: 999 mls/hr Documented By: RICHARD All medications administered and effective Consultations Consultation(s) initiated? (list below): No Diagnosis Overdose Differential Diagnosis: cocaine intoxication, suicide attempt by multiple drug overdose, poisoning by opiate or related narcotic, drug overdose and acetaminophen overdose Most likely diagnosis given after review of the tests above:: Opiate accidental drug overdose Admission Indicated Admission indicated?: indicated Admission Request Was there a request for admission?: Yes Admission Attestation Admission request attestation: Discussed case with [] from Hospitalist service regarding admission. Discussed patients ED course, exam findings, labs, and radiology results. The Hospitalist [agrees,declines] to accept the patient for admission. Disposition Plan Disposition Plan: Admit Discharge Plan Plan Patient Disposition: Admit Acute Care w/in Hospital Prescriptions/Referrals Prescriptions/Med Rec: No Action hydrocodone-acetaminophen [Buckley] 10-325 mg Tablet 1 tab PO Q8H PRN (Reason: Pain) Qty: 0 cyclobenzaprine 10 mg tablet 10 mg PO HS alendronate 70 mg tablet 70 mg PO QWEEK Patient Comments: TAKE 1 TABLET BY MOUTH 1 TIME A WEEK baclofen 10 mg tablet 10 mg PO BID Patient Comments: TAKE 1 TABLET BY MOUTH TWICE DAILY WITH FOOD OR MILK Breo Ellipta 200-25 mcg/dose blister with device 1 inh INHALATION DAILY Patient Comments: INHALE 1 PUFF BY MOUTH EVERY DAY Combivent Respimat 20-100 mcg/actuation mist 1 puff INHALATION BID Patient Comments: INHALE 1 PUFF BY MOUTH TWICE DAILY sucralfate 1 gram tablet 1 g PO BID Patient Comments: TAKE 1 TABLET BY MOUTH TWICE DAILY ON AN EMPTY STOMACH pantoprazole 40 mg tablet,delayed release (DR/EC) 40 mg PO QDAY Patient Comments: TAKE 1 TABLET BY MOUTH EVERY DAY gabapentin 300 mg capsule 300 mg PO BID Patient Comments: TAKE 1 CAPSULE BY MOUTH TWICE DAILY albuterol sulfate [Ventolin HFA] 90 mcg/actuation HFA aerosol inhaler 2 puff INHALATION TID PRN (Reason: Wheezing) Patient Comments: INHALE 2 PUFFS BY MOUTH THREE TIMES DAILY NEEDED hydrocodone-acetaminophen 5-325 mg tablet 1 tab PO BID MDD 10 PRN (Reason: pain) Qty: 14 0RF levofloxacin 500 mg tablet 500 mg PO QDAY Qty: 4 0RF prednisone 50 mg tablet 50 mg PO QDAY Qty: 7 0RF Referrals: Luke Saab PA-C [Primary Care Provider] - In 1 week Problem List Clinical Impression: AMS (altered mental status), Opiate overdose Patient/Caregiver Discharge Instructions Print Language: Vietnamese Stand Alone Forms: [facility]re Award Info., Patient Portal Info Letter PA/[employer] Supervising Physician PA/[employer] Supervising Physician: Dr. Bautista
[2024-11-24 20:01] LABS: Collection Type, Urine Clean Catch; Squamous Epithelial Cell,Urine 0 /hpf (0-5)
[2024-11-24 20:02] LABS: Acetaminophen < 2.0 mcg/mL (10.0-20.0); Alanine Aminotransferase 28 U/L (10-49); Albumin, Serum 3.6 gm/dL (3.4-4.8); Albumin/Globulin Ratio 1.3 (1.2-2.2); Alcohol, Blood Medical < 3.0 mg/dL (0-10.0); Alkaline Phosphatase 337 U/L (46-116); Anion Gap 9 (7-16); Aspartate Amino Transferase 22 U/L (0-34); BUN/Creatinine Ratio 13 Ratio (12-20); Bilirubin,Total 1.5 mg/dL (0.3-1.2); Blood Urea Nitrogen 9 mg/dL (9-23); Calcium 8.8 mg/dL (8.3-10.6); Calcium (Corrected) 9.1 mg/dL (8.5-10.1); Carbon Dioxide 28.4 mMol/L (20.0-31.0); Chloride 104 mMol/L (98-107); Creatinine (Component) 0.7 mg/dL (0.6-1.3); Globulin 2.7 gm/dL (2.3-3.5); Glucose 96 mg/dL (74-106); Osmolality,Calculated 279 (275-295); Potassium 3.6 mMol/L (3.4-5.1); Sodium 141 mMol/L (136-145); Total Protein 6.3 gm/dL (5.7-8.2); Troponin I < 0.020 ng/mL (0.0-0.045); eGFR > 60 See Note
[2024-11-24 20:15] LABS: Amphetamine/Methamp Scrn,U Negative (Negative); Barbiturate Screen,Urine Negative (Negative); Benzodiazepines Screen,Urine Negative (Negative); Benzoylecgonine Screen, Ur Negative (Negative); Fentanyl Screen,Urine Negative (Negative); Opiate Screen,Urine Positive (Negative); THC Screen,Urine Negative (Negative)
[2024-11-24 20:41] LABS: Bilirubin,Urine Negative (Negative); Blood,Urine Negative (Negative); Clarity,Urine Clear (Clear/Hazy); Color,Urine Yellow (Lt Yel-Yel); Glucose, Urine Negative (Negative); Ketones,Urine Negative (Negative); Leukocyte Esterase,Urine Negative (Negative); Nitrite,Urine Negative (Negative); PH,Urine 6.5 (5.0-7.0); Protein,Urine Negative (Neg - Trace); RBC,Urine 1 /hpf (0-3); Specific Gravity,Urine 1.016 (1.001-1.035); WBC,Urine 1 /hpf (0-5)
--- NOTE | 2024-11-24 21:59 | XR_ITS ---
Examination: AP lateral chest 2 views Technique: AP upright AP lateral chest 2 views Exam date and time: November 24, 2024 10:27 PM Indications: Altered mental status today. Findings: Accentuation interstitial markings at the lung bases No lobar pneumonia Normal heart size No pulmonary edema Suspicious for 10 mm pulmonary nodule right upper lobe Impression: Scarring versus bronchitis pattern at the lung bases Recommend AP lordotic chest follow-up to exclude small pulmonary nodule right apex
--- NOTE | 2024-11-24 23:28 | ESHP_ITS ---
Documentation for date of: 11/24/24 HPI History of Present Illness Chief complaint: Altered mental status History of present illness: Patient is a 79-year-old male with past medical history of COPD on 2L home O2, pneumothorax in 2020, GERD, osteoarthritis, chronic back pain on opioids, diverticulitis, and recent ERCP who was BIBA from home to the ED on 11/24/2024 with altered mental status. Per report patient was found at home with possible agonal breathing around 6 pm. History entirely obtained from daughter and chart review due to patient mental status. Patient takes [place] 10/325 mg as needed up to TID for chronic back pain. Daughter stated that patient was discharged from [facility] ago s/p ERCP procedure. According to documentation granddaughter had been giving patient oxycodone which was also prescribed to patient on discharge but when daughter is questioned she states that they never picked up the discharge prescriptions. According to her patient's baseline is independent with ADLs, ambulatory and conversational. Daughter lives with him and assists. ED Course: -Initial vitals were BP 150/94, HR 73, RR 22, Temp 98.6, O2 95% on 4L NC -Labs unremarkable except for tbili of 1.5, alk phos 337. -EKG showed sinus rhythm with PVCs at a rate of 89 -Utox positive for opioids -In the ED, patient was given 1L NS and naloxone 2 mg IV x1 -Patient was admitted for observation for opioid overdose Review of Systems Review of systems otherwise negative except what is mentioned above. Past Medical History Past Medical History Comments PMH COMMENT: Past Medical History: COPD on 2L home O2, pneumothorax in 2020, GERD, osteoarthritis, chronic back pain on opioids, diverticulitis Family History: Noncontributory Surgical History: Spinal bone graft, cataract removal Social History: Remote history of smoking, denies current alcohol use, denies recreational drug use Current Medications: Trelegy 200 mcg BID, alendronate 70 mg qweek, hydrocodone- acetaminophen 10-325 mg q8h prn, pantoprazole 40 mg, Miralax 17 g, senna 8.6 mg qday, calcium carbonate 600 mg qday (Source: Pharmacy prescription history) Allergies: No known drug allergies Exam Vital Signs Temp Pulse Resp BP Pulse Ox O2 Del Method O2 Flow Rate 97.7 F 92 25 H 147/94 H 99 Nasal Cannula 2 01/02/25 19:13 11/24/24 19:13 11/24/24 19:13 11/24/24 19:13 11/24/24 19:13 11/24/24 19:13 11/24/24 19:13 Narrative Exam Physical Exam General: Obtunded. Responsive to position changes and sternal rub, groans and localizes. HEENT: Normocephalic, atraumatic, mucous membranes moist. On 2L NC. Heart: Regular rate and rhythm, no murmurs. Lungs: Clear to auscultation with no wheezing or crackles. Abdomen: Soft, nondistended, nontender, positive bowel sounds. ?No guarding or rebound tenderness. Neurologic: GCS 11, pupils 1-2 mm pinpoint, no gross neurological deficit, and patient able to move all 4 extremities. Extremities: No edema. Skin: No rash or ecchymoses. Results: Labs 11/25/24 04:37 11/25/24 04:37 Labs: Short CBC 11/24/24 Range/Units 18:55 WBC 8.9 (3.8-10.6) Thou/mm3 Hgb 13.4 L (13.5-16.0) g/dL Hct 39.5 L (41.0-53.0) % Plt Count 376 (140-440) Thou/mm3 BMP 11/24/24 18:55 Sodium 141 Potassium 3.6 Chloride 104 Carbon Dioxide 28.4 BUN 9 Creatinine 0.7 Glucose 96 Calcium 8.8 Cardiac Enzymes 11/24/24 Range/Units 18:55 Troponin I < 0.020 (0.0-0.045) ng/mL Liver Function 11/24/24 Range/Units 18:55 Total Bilirubin 1.5 H (0.3-1.2) mg/dL AST 22 (0-34) U/L ALT 28 (10-49) U/L Alkaline Phosphatase 337 H (46-116) U/L Albumin 3.6 (3.4-4.8) gm/dL Urine 11/24/24 Range/Units 19:51 Urine Color Yellow (Lt Yel-Yel) Urine Clarity Clear (Clear/Hazy) Urine pH 6.5 (5.0-7.0) Ur Specific B[place]orn 1.016 (1.001-1.035) Urine Protein Negative (Neg - Trace) Urine Glucose (UA) Negative (Negative) Quality Measures Quality Measures none Advance care planning discussed with:: child Medications Home Medications and Allergies Home Medications ?Medication ?Instructions ?Recorded ?Confirmed ?Type hydrocodone 10 mg-acetaminophen 1 tab PO Q8H PRN Pain #0 tabs 06/01/17 06/21/21 History 325 mg tablet albuterol sulfate 90 mcg/actuation 2 puff inhalation TID PRN Wheezing 06/19/21 06/21/21 History aerosol inhaler (Ventolin HFA) alendronate 70 mg tablet 70 mg PO QWEEK 06/19/21 06/21/21 History baclofen 10 mg tablet 10 mg PO BID 06/19/21 06/21/21 History cyclobenzaprine 10 mg tablet 10 mg PO HS 06/19/21 06/21/21 History fluticasone furoate 200 1 inh inhalation DAILY 06/19/21 06/21/21 History mcg-vilanterol 25 mcg/dose inhalation powder (Breo Ellipta) gabapentin 300 mg capsule 300 mg PO BID 06/19/21 06/21/21 History ipratropium 20 mcg-albuterol 100 1 puff inhalation BID 06/19/21 06/21/21 History mcg/actuation mist for inhalation (Combivent Respimat) pantoprazole 40 mg tablet,delayed 40 mg PO QDAY 06/19/21 06/21/21 History release sucralfate 1 gram tablet 1 g PO BID 06/19/21 06/21/21 History Allergies Allergy/AdvReac Type Severity Reaction Status Date / Time No Known Allergies Allergy Verified 11/24/24 18:57 Visit Medications Naloxone HCl (Naloxone Inj 1 Mg/Ml Syringe 2 Ml) 2 mg IV Q3M PRN PRN Reason: OPIATE REVERSAL Stop: 12/24/24 23:24 Discontinued Medications Sodium Chloride (Ns) 1,000 mls @ 999 mls/hr IV .Q1H1M ONE Stop: 11/24/24 19:38 Last Infusion: 11/24/24 20:48 Dose: Infused Naloxone HCl 2 mg/ Dextrose 500 mls @ 10 mls/hr IV .Q24H DANTE Stop: 12/24/24 18:44 Last Admin: 11/24/24 22:26 Dose: Not Given Naloxone HCl (Naloxone Inj 1 Mg/Ml Syringe 2 Ml) 2 mg IV X1 ONE Stop: 11/24/24 23:23 Assessment & Plan Plan 79-year-old male with past medical history of COPD on 2L home O2, pneumothorax in 2020, GERD, osteoarthritis, chronic back pain on opioids, diverticulitis, and recent ERCP who was BIBA from home to the ED on 11/24/2024 with altered mental status. He was admitted for observation for suspected opioid overdose. #Acute encephalopathy, secondary to #Opioid overdose Patient found altered with agonal breathing in the home, responded to naloxone, GCS had improved to 14 at that time. Patient again became difficult to arouse and pupils still pinpoint in ED so additional 2 mg IV naloxone given. -Avoiding opioids -Naloxone 2 mg IV as needed if patient still unresponsive -Neuro checks q4h -Aspiration precautions -NPO -Swallow screen when awake -Speech therapy evalution #History of emphysematous COPD, not currently in exacerbation Patient has previous history of smoking. Also history of spontaneous pneumothorax in 2020 requiring chest tube placement. He is on home O2 2L. Patient is at baseline respiratory status. -Continue supplemental oxygen as needed -Titrate to O2 88-92% DVT prophylaxis: Heparin 5,000 U subQ GI prophylaxis: Not indicated Diet: NPO Julien: None Lines: Peripheral IV Antibiotics: None CODE STATUS: FULL Reason for hospitalization: Observation for opioid overdose Patient plan of care was discussed with the attending physician, Dr. Alvarez. Carmen Kinney, PGY-2 Attending Provider Attestation/Addendum I discussed with and supervised the resident physician who took care of this patient. I agree with the assessment and plan as above. 79-year-old male patient with COPD who was admitted for altered mentation. The patient was found to be unresponsive with agonal breathing. He has prior use of opiate medications. Patient has been receiving oxycodone and [place], he had ERCP last week in [place]. Patient received naloxone. He is being admitted for further monitoring and management.
[2024-11-24] MEDS: NALOXONE INJ 1 MG/ML SYRINGE 2 ML 2 MG IV (23:39)
[2024-11-25] VITALS (10 sets, daily range): BP systolic 118–140; BP diastolic 81–97; PULSE 77–92; RESP 16–25; TEMP 36.2–37.1; O2SAT 92–98
[2024-11-25 00:08] LABS: Thyroid Stimulating Hormone 4.02 uIU/mL (0.55-4.78)
--- NOTE | 2024-11-25 02:04 | PC.NURSE ---
REPORT GIVEN TO KAVYA GERONIMO. ALL QUESTIONS ASKED AND ANSWERED. PATIENT TRANSFERRED TO ROOM BY STAFF. NO DISTRESS NOTED AT TRANSFER. PATIENT REMAINS ON 2L O2.
[2024-11-25 05:50] LABS: Basophils # (Auto) 0.1 Thou/mm3 (0.0-0.2); Basophils % (Auto) 1 % (0-2.5); Eosinophils # (Auto) 0.2 Thou/mm3 (0.0-0.5); Eosinophils % (Auto) 2 % (0-10); Hematocrit 39.5 % (41.0-53.0); Hemoglobin 13.5 g/dL (13.5-16.0); Immature Granulocytes % (Auto) 0 % (0-0); Immature Granulocytes Auto 0.03 Thou/mm3 (0.00-0.00); Lymphocytes # (Auto) 1.7 Thou/mm3 (1.0-4.8); Lymphocytes % (Auto) 20 % (10-50); Mean Corpuscular HGB Conc 34.2 g/dl (31.0-37.0); Mean Corpuscular Hemoglobin 31.5 pg (25.0-35.0); Mean Corpuscular Volume 92 fL (80-100); Monocytes # (Auto) 0.6 Thou/mm3 (0.0-0.8); Monocytes % (Auto) 7 % (0-12); Neutrophils % (Auto) 70 % (37-80); Nucleated Red Blood Cell % 0 /100 WBC (0); Platelet Count 362 Thou/mm3 (140-440); RDW Standard Deviation 46.3 fL (35.1-43.9); Red Blood Count 4.28 Miln/mm3 (4.50-5.90); White Blood Count 8.7 Thou/mm3 (3.8-10.6)
[2024-11-25 06:20] LABS: Alanine Aminotransferase 22 U/L (10-49); Albumin, Serum 3.5 gm/dL (3.4-4.8); Albumin/Globulin Ratio 1.4 (1.2-2.2); Alkaline Phosphatase 320 U/L (46-116); Anion Gap 8 (7-16); Aspartate Amino Transferase 13 U/L (0-34); BUN/Creatinine Ratio 12 Ratio (12-20); Bilirubin,Total 1.7 mg/dL (0.3-1.2); Blood Urea Nitrogen 6 mg/dL (9-23); Calcium 8.7 mg/dL (8.3-10.6); Calcium (Corrected) 9.1 mg/dL (8.5-10.1); Carbon Dioxide 29.8 mMol/L (20.0-31.0); Chloride 102 mMol/L (98-107); Creatinine (Component) 0.5 mg/dL (0.6-1.3); Globulin 2.5 gm/dL (2.3-3.5); Glucose 95 mg/dL (74-106); Magnesium 1.8 mg/dL (1.6-2.6); Osmolality,Calculated 277 (275-295); Phosphorous 3.4 mg/dL (2.4-5.1); Potassium 3.2 mMol/L (3.4-5.1); Sodium 140 mMol/L (136-145); eGFR > 60 See Note
[2024-11-25] MEDS: POTASSIUM CHL 10 mEq IVPB 10 MEQ/100 ML BAG 100 MEQ IV ×4 (07:22→10:37)
--- NOTE | 2024-11-25 08:55 | PCS.ST ---
Swallow Evaluation completed. See report for details. Recommend Dysphagia 1, Reg liquids. ST will follow up.
[2024-11-25] MEDS: HEPARIN SOD INJ 5000 UNIT/ML VIAL SC ×2 (09:29→20:12)
--- NOTE | 2024-11-25 11:06 | PC.SS ---
SS update: patient unable to compete initial assessment with patient. No family at bed side. No contact number for patient' daughter Tanya Chawla. Bed side nurse is aware.
--- NOTE | 2024-11-25 15:32 | PC.SS ---
Initial assessment: this is 79 year old male admitted for opiod overdose. Patient currently altered. Daughter at bed side to assist with information. Patient lives at home with daughter, Tanya. Tanya is identified as the patient's emergency contact. Patient described as independent with ADL's. Patient has oxygen at home on 2-3L as needed per daughter. Patient's PCP is Dr. Luke Saab. Per daughter, patient does not have mental health diagnosis nor utilizes substances. Medical team reports no concern for intentional overdose. Patient discharge plan is to return home. Family to provide transport home. director of consulting services to remain available to assist with further needs. D/c plan: home Next of kin, daughter Tanya Chawla [phone]
--- NOTE | 2024-11-25 15:38 | PC.SS ---
PT has recommended home health for the patient and FWW.
--- NOTE | 2024-11-25 16:35 | ESPR_ITS ---
<Statement entered by Elina Varela MD - 11/29/24 14:18> I reviewed above note and agree with findings and plans. I have also personally examined the patient with medicine team and went over assessment and plan with medical team including transportation logistics internship and resident physician. Documentation for date of: 11/25/24 Subjective Subjective Interval history: 11/25: Pt is an overnight admit. Patient is seen and examined at bedside this morning, patient is alert and oriented to time and place. Patient is saturating on 2 L of oxygen via nasal cannula and vital signs are stable. patient states that he has chronic pain in his whole body therefore unable to differentiate if he has any acute pain in his extremities or not. However patient is ambulatory at baseline and feeling weak therefore we will order PT evaluation and possible consider for rehab. Patient denies any chest pain or abdominal pain. Exam Vital Signs Temp Pulse Resp BP Pulse Ox O2 Del Method O2 Flow Rate 97.4 F 83 17 136/97 H 98 Nasal Cannula 2 11/25/24 12:00 11/25/24 16:00 11/25/24 12:00 11/25/24 12:00 11/25/24 12:00 11/25/24 12:11/25/24 12:00 Narrative Exam GENERAL: A&Ox3 . Awake, Not in acute distress NEURO: no focal neurological deficits HEENT: Atraumatic, Normocephalic. mucous membranes moist. Eyes open, symmetrical, & clear HEART: Normal Heart Sounds LUNGS: Clear to auscultation with no wheezing or crackles. ABDOMEN: soft, non-distended, non-tender, bowel sounds heard, no guarding or rebound tenderness SKIN: No Rash or ecchymoses EXTREMITIES: No edema, tenderness, able to move all 4 extremities, pedal pulses palpated Objective Labs 11/25/24 04:37 11/25/24 04:37 Labs: Laboratory Results - last 24 hr 11/24/24 11/24/24 11/25/24 18:55 19:51 04:37 WBC 8.9 8.7 RBC 4.27 L 4.28 L Hgb 13.4 L 13.5 Hct 39.5 L 39.5 L MCV 93 92 MCH 31.4 31.5 MCHC 33.9 34.2 RDW Std Deviation 47.1 H 46.3 H Plt Count 376 362 Neut % (Auto) 69 70 Lymph % (Auto) 20 20 Clare % (Auto) 8 7 Eos % (Auto) 2 2 Baso % (Auto) 1 1 Neut # (Auto) 6.2 6.0 Lymph # (Auto) 1.8 1.7 Clare # (Auto) 0.7 0.6 Eos # (Auto) 0.1 0.2 Baso # (Auto) 0.1 0.1 Immature Gran # (Auto) 0.01 H 0.03 H Absolute Nucleated RBC 0.00 0.00 Immature Gran % 0 0 Nucleated RBC % 0 0 PT 11.7 INR 1.1 APTT 26.8 Sodium 141 140 Potassium 3.6 3.2 L Chloride 104 102 Carbon Dioxide 28.4 29.8 Anion Gap 9 8 BUN 9 6 L Creatinine 0.7 0.5 L Estim Creat Clear Calc Not Performed. Not Performed. eGFR > 60 > 60 BUN/Creatinine Ratio 13 12 Glucose 96 95 Calculated Osmolality 279 277 Calcium 8.8 8.7 Corrected Calcium 9.1 9.1 Phosphorus 3.4 Magnesium 1.8 Total Bilirubin 1.5 H 1.7 H AST 22 13 ALT 28 22 Alkaline Phosphatase 337 H 320 H Ammonia 20 Troponin I < 0.020 Total Protein 6.3 6.0 Albumin 3.6 3.5 Globulin 2.7 2.5 Albumin/Globulin Ratio 1.3 1.4 TSH 4.02 Ur Collection Type Clean Catch Urine Color Yellow Urine Clarity Clear Urine pH 6.5 Ur Specific [place] 1.016 Urine Protein Negative Urine Glucose (UA) Negative Urine Ketones Negative Urine Blood Negative Urine Nitrite Negative Urine Bilirubin Negative Urine Urobilinogen (Auto) 3.0 Ur Leukocyte Esterase Negative Urine RBC 1 Urine WBC 1 Ur Squamous Epith Cells 0 Urine Bacteria None Urine Opiates Screen Positive A Urine Fentanyl Screen Negative Acetaminophen < 2.0 L Ur Barbiturates Screen Negative U Amphetamin/Meth Scrn Negative U Benzodiazepines Scrn Negative U Cocaine Metab Screen Negative U Marijuana (THC) Screen Negative Ethyl Alcohol < 3.0 Quality Measures Quality Measures none Advance care planning discussed with:: patient Assessment & Plan Assessment Current Active Medications: Generic Name Dose Route Start Last Admin Trade Name Freq PRN Reason Stop Dose Admin Acetaminophen 650 mg 11/24/24 23:29 Acetaminophen 325 Mg Tablet PO 12/24/24 23:28 Q6H PRN Fever >100.4 or Pain Heparin Sodium (Porcine) 5,000 unit 11/25/24 09:00 11/25/24 09:29 Heparin Sod Inj 5000 Unit/Ml Vial SC 12/09/24 08:59 5,000 unit Q12HR DANTE Administration Naloxone HCl 2 mg 11/24/24 23:25 Naloxone Inj 1 Mg/Ml Syringe 2 Ml IV 12/24/24 23:24 Q3M PRN OPIATE REVERSAL Ondansetron HCl 4 mg 11/24/24 23:29 Ondansetron Inj 2 Mg/Ml Inj 2 Ml IV 12/24/24 23:28 Q6H PRN NAUSEA OR VOMITING Protocol Plan Mr. Hanson is a 79-year-old male with past medical history of COPD on 2L home O2, pneumothorax in 2020, GERD, osteoarthritis, chronic back pain on opioids (Norco10 3 times daily), diverticulitis, and recent ERCP who was BIBA from home to the ED on 11/24/2024 with altered mental status. He was admitted for observation for suspected opioid intoxication. #Acute encephalopathy, secondary to #Opioid intoxication vs. #Polypharmacy #in the setting of Chronic pain Patient found altered with agonal breathing in the home, responded to naloxone, GCS had improved to 14 at that time. Patient again became difficult to arouse and pupils still pinpoint in ED so additional 2 mg IV naloxone given. - Pt home meds include Norco10 TID for chronic backpain Plan: -Avoiding opioids -Naloxone 2 mg IV as needed if patient still unresponsive -Neuro checks q4h -Aspiration precautions -NPO -Swallow screen -Speech therapy evalution -PT evaluation ordered #History of emphysematous COPD, not currently in exacerbation Patient has previous history of smoking. Also history of spontaneous pneumothorax in 2020 requiring chest tube placement. He is on home O2 2L. Patient is at baseline respiratory status. -Continue supplemental oxygen as needed -Titrate to O2 88-92% DVT prophylaxis: Heparin 5,000 U subQ GI prophylaxis: Not indicated Diet: NPO Julien: None Lines: Peripheral IV Antibiotics: None CODE STATUS: FULL Assessment and plan discussed with my senior resident Dr. Simpson & attending physician Dr. Avery Yu (PGY-1)- Internal medicine resident Senior resident attestation: Patient evaluated and examined at the bedside, plan of care discussed with rest of the team including my attending physician, except as noted. Mr. Hanson is an 79-year-old male who was recently discharged from [facility] in [place] following ERCP, likely secondary to bile duct stone found in MRCP during previous hospitalization at [facility]. Likely medication overdose leading to acute encephalopathy as patient reported chronic pain and takes Boyd's at home, noted improvement in mental status following opioid reversal with naloxone in the emergency room. Will request medical records from [facility], to see if is a stent was placed in CBD, noted elevation of bilirubin 1.5-1.7. Will continue to trend T. bili, noted previous hospitalization records, will consider repeat MRCP if indicated. Continue to follow mental status changes, which continues to improve. No current evidence of sepsis at this moment. Quresh PGY2
[2024-11-26] VITALS: BP 108/78; PULSE 92; RESP 19; TEMP 36.7; O2SAT 93
[2024-11-26 04:00] VITALS: BP 114/80; PULSE 86; RESP 19; TEMP 37.1; O2SAT 93
[2024-11-26 06:14] LABS: Basophils # (Auto) 0.1 Thou/mm3 (0.0-0.2); Basophils % (Auto) 1 % (0-2.5); Eosinophils # (Auto) 0.2 Thou/mm3 (0.0-0.5); Eosinophils % (Auto) 3 % (0-10); Hematocrit 42.3 % (41.0-53.0); Hemoglobin 14.3 g/dL (13.5-16.0); Immature Granulocytes % (Auto) 0 % (0-0); Immature Granulocytes Auto 0.03 Thou/mm3 (0.00-0.00); Lymphocytes # (Auto) 1.8 Thou/mm3 (1.0-4.8); Lymphocytes % (Auto) 21 % (10-50); Mean Corpuscular HGB Conc 33.8 g/dl (31.0-37.0); Mean Corpuscular Hemoglobin 31.2 pg (25.0-35.0); Mean Corpuscular Volume 92 fL (80-100); Monocytes # (Auto) 0.6 Thou/mm3 (0.0-0.8); Monocytes % (Auto) 7 % (0-12); Neutrophils # (Auto) 5.9 Thou/mm3 (1.8-7.7); Neutrophils % (Auto) 69 % (37-80); Nucleated Red Blood Cell % 0 /100 WBC (0); Platelet Count 439 Thou/mm3 (140-440); RDW Standard Deviation 46.7 fL (35.1-43.9); Red Blood Count 4.58 Miln/mm3 (4.50-5.90); White Blood Count 8.6 Thou/mm3 (3.8-10.6)
[2024-11-26 06:44] LABS: Alanine Aminotransferase 16 U/L (10-49); Albumin, Serum 3.5 gm/dL (3.4-4.8); Albumin/Globulin Ratio 1.3 (1.2-2.2); Alkaline Phosphatase 311 U/L (46-116); Anion Gap 9 (7-16); Aspartate Amino Transferase 15 U/L (0-34); BUN/Creatinine Ratio 13 Ratio (12-20); Bilirubin,Total 1.7 mg/dL (0.3-1.2); Blood Urea Nitrogen 8 mg/dL (9-23); Calcium 9.3 mg/dL (8.3-10.6); Calcium (Corrected) 9.7 mg/dL (8.5-10.1); Carbon Dioxide 29.5 mMol/L (20.0-31.0); Chloride 102 mMol/L (98-107); Creatinine (Component) 0.6 mg/dL (0.6-1.3); Globulin 2.7 gm/dL (2.3-3.5); Glucose 93 mg/dL (74-106); Osmolality,Calculated 277 (275-295); Potassium 3.7 mMol/L (3.4-5.1); Sodium 140 mMol/L (136-145); Total Protein 6.2 gm/dL (5.7-8.2); eGFR > 60 See Note
[2024-11-26 06:49] VITALS: PULSE 89; RESP 18; O2SAT 97
[2024-11-26 08:00] VITALS: BP 114/77; PULSE 88; RESP 15; TEMP 36.6; O2SAT 94
[2024-11-26] MEDS: HEPARIN SOD INJ 5000 UNIT/ML VIAL SC (08:50)
[2024-11-26 12:00] VITALS: BP 100/74; PULSE 108; RESP 20; TEMP 36.9; O2SAT 94
--- NOTE | 2024-11-26 13:09 | PC.SS ---
Addendum entered by Tamara Escobar 11/27/24 15:58: SW faxed referral to [facility] [place]. Addendum entered by Tamara Escobar 11/26/24 13:16: SW completed referral for [facility]WW through [facility]. Original Note: Walkers The diagnosis of recent ERCP, chronic back pain creates mobility limitation that significantly impairs ability to participate in the patients activities of daily living either in their entirety, or in a reasonable time frame. Also the patient is able to safely use the walker and the patient?s mobility is sufficiently resolved with the use of the walker and cane has been ruled out.
--- NOTE | 2024-11-26 13:48 | ESDS_ITS ---
<Statement entered by Elina Varela MD - 11/29/24 14:18> I reviewed above note and agree with findings and plans. I have also personally examined the patient with medicine team and went over assessment and plan with medical team including commercial internship and resident physician. Planned Discharge Date 11/26/24 DS: Providers Provider Date of admission: 11/25/24 13:35 Primary care physician: Luke Saab PA-C Admitting Provider: Nain Alvarez MD Attending Provider on Admission: Elina Varela MD Consults: 11/25/24 00:07 Referral Speech Therapy Stat Comment: 11/25/24 13:24 Referral Physical Therapy Urgent Comment: Physician Instructions: Attending Provider on DC: John Guillen MD Discharging Provider: John Guillen MD DS: Diagnosis Problem List Completed Was Problem List Reviewed/Reconciled?: Yes Hospital Course Hospital Course Hospital course: Mr. Hanson is an 79-year-old male with past medical history of COPD requiring 2 L of home oxygen, previous pneumothorax in 2020, history of GERD, osteoarthritis, chronic back pain for which he is prescribed opioids, diverticulitis and recent ERCP in [place] who was brought into [facility] by EMS with a chief complaint of altered mentation. Patient was recently discharged from [facility] after he had ERCP and following the procedure the marine animal trainer recommendation was that the patient would require general surgery intervention but decision for surgery was delayed. Patient remained hospitalized for series of 5 days where he was kept n.p.o. and kept in bed. Upon discharge patient went home to his family and the following day after discharge patient became obtunded so family decided to call emergency medical services. EMS noted that the patient did have an altered mentation but was able to protect his airways and was noted to have a GCS of 14. Due to patient's history of being prescribed opioid medications for his chronic back pain patient received naloxone which showed a mild improvement in his overall condition. Patient received additional 2 mg of IV naloxone in the emergency department which continued to show improvement in his mentation. Patient was admitted to [facility] for acute encephalopathy secondary to opioid intoxication versus polypharmacy versus recent hospitalization and delirium. Over the course of the 2 days of patient's hospitalization he shows significant improvement and was able to answer questions appropriately and remain oriented to time place and person. According to family at bedside patient did have generalized weakness and appeared to have delayed responses. At baseline patient is able to live independently with only assistance required being help with meals and medications which is provided by his granddaughter. Upon initial presentation patient did receive a head CT which was negative for gross hemorrhage, mass effect, or midline shift but patient did have continual motion degrading the quality of the image. Patient was prescribed Narcan upon discharge in case of opioid overdose and his medication regimen was adjusted. No recommendation is that gabapentin which was given 300 mg at bedtime is changed to 100 mg either twice daily or 3 times daily if needed. Also hydrocodone dose should be cut in half to 5 mg with a max dose of 15 mg over a span of 24 hours. Patient likely had a combination of things including prolonged hospital stay with dehydration and generalized weakness complicated with polypharmacy leading to altered mentation. With patient's significant improvement in mentation and cognition a physical therapy evaluation was ordered but patient was able to work with physical therapy and the recommendation was that the patient would benefit from home health services with a physical therapist. Patient and his family were counseled to ensure that patient has adequate nutrition with a high-protein diet along with significant exercise to improve general mobility and strength. Patient is progressing towards baseline health and is medically cleared for discharge. Plan for discharge discussed with supervising attending Dr. Avery Guillen M.D. PGY-3 #New medications Naloxone 4 mg intranasal every 3 minutes as needed in case of opioid overdose #Acute encephalopathy, secondary to #Opioid intoxication vs. #Polypharmacy #in the setting of Chronic pain Patient found altered with agonal breathing in the home, responded to naloxone, GCS had improved to 14 at that time. Patient again became difficult to arouse and pupils still pinpoint in ED so additional 2 mg IV naloxone given. - Pt home meds include Norco10 TID for chronic backpain Plan: -Avoiding opioids -Naloxone 2 mg IV as needed if patient still unresponsive -Neuro checks q4h -Aspiration precautions -NPO -Swallow screen -Speech therapy evalution -PT evaluation ordered #History of emphysematous COPD, not currently in exacerbation Patient has previous history of smoking. Also history of spontaneous pneumothorax in 2020 requiring chest tube placement. He is on home O2 2L. Patient is at baseline respiratory status. -Continue supplemental oxygen as needed -Titrate to O2 88-92% DVT prophylaxis: Heparin 5,000 U subQ GI prophylaxis: Not indicated Diet: NPO Julien: None Lines: Peripheral IV Antibiotics: None CODE STATUS: truck supervisor spent discussing smoking cessation with patient: more than 10 minutes Status at Discharge Functional status at discharge: uses cane/walker Overall status at discharge: patient is progressing back to baseline Time Spent with Patient Time attestation: Total time spent providing and/or coordinating discharge services: Time spent: Greater than 30 minutes Home Health Home Health Referral Orders: 11/26/24 09:07 Home Health Referral Routine Reason For Exam: PT Home-Bound The patient must either because of illness or injury, need the aid of supportive devices such as crutches, canes, wheelchairs, and walkers; the use of special transportation; or the assistance of another person in order to leave their place of residence; OR have a condition such that leaving his or her home is medically contraindicated. In addition, the patient also meets the following criteria: patient is normally unable to leave the home and leaving home requires considerable taxing effort. Addendum to Home Health Certification Practitioner's Certification: I certify that the patient has been under my care in the hospital and the care of attending physician (see below). We had a [id number] encounter on (see date below). My clinical findings indicate that the patient is home bound per the above criteria and the Home Health Services noted in these orders are medically necessary. The primary reason for the [id number] encounter is related to the fact that the patient requires home health services. Date Certifying [id number] Physician Encounter: 11/24/24 Physician's Name who will Assume Oversight for Services: Luke Saab Physician's Phone No.who will Assume Oversight for Service: RESEARCH ADVISOR - Community Resources: No PT to Evaluate: Yes PT to evaluate and provide a treatmnet plan to increase patient's mobility and strength. Wound Care: No IV Therapy: No RN Safety Evaluation: Yes RN to evaluate and create a plan of care that will produce positive outcomes. Palliative Treatment: No Palliative treatment and evaluate the need for hospice. Home Health Aide - Personal Care: No Home Health Aide to assist with any ADL's. Exam Vital Signs Temp Pulse Resp BP Pulse Ox O2 Del Method O2 Flow Rate 98.4 F 108 H 20 100/74 94 L Nasal Cannula 2 11/26/24 12:00 11/26/24 12:00 11/26/24 12:00 11/26/24 12:00 11/26/24 12:00 11/26/24 12:00 11/26/24 12:00 Discharge Plan Plan Patient Disposition: Home w/HOME HEALTH Care Plan Goals: Patient is recommended to discontinue gabapentin 300 mg at bedtime. Patient is recommended to substitute gabapentin bedtime dose with 100 mg to be taken 3 times daily in divided doses of 100 mg morning, noon, evening Patient is recommended to discontinue 10 mg hydrocodone and only to continue with 5 mg with a max dose of 15 mg daily Patient is also being sent home on Narcan solution to be used as needed in case of opioid overdose. Patient is recommended to protect from polypharmacy with multiple medications that may lead to lethargy including cyclobenzaprine, gabapentin, hydrocodone and any other medications that may lead to the patient developing drowsiness Patient will be sent home with home health with physical therapy services to improve functional mobility. Prescriptions/Referrals Prescriptions/Med Rec: New naloxone [Narcan] 4 mg/actuation spray,non-aerosol 4 mg intranasal Q3M PRN (Reason: opioid overdose) Qty: 2 1RF Rx Instructions: spray 1 dose into ONE nostril; alternate nostrils w each dose until help arrives Continued cyclobenzaprine 10 mg tablet 10 mg PO HS alendronate 70 mg tablet 70 mg PO QWEEK Patient Comments: TAKE 1 TABLET BY MOUTH 1 TIME A WEEK baclofen 10 mg tablet 10 mg PO BID Patient Comments: TAKE 1 TABLET BY MOUTH TWICE DAILY WITH FOOD OR MILK Breo Ellipta 200-25 mcg/dose blister with device 1 inh INHALATION DAILY Patient Comments: INHALE 1 PUFF BY MOUTH EVERY DAY Combivent Respimat 20-100 mcg/actuation mist 1 puff INHALATION BID Patient Comments: INHALE 1 PUFF BY MOUTH TWICE DAILY albuterol sulfate [Ventolin HFA] 90 mcg/actuation HFA aerosol inhaler 2 puff INHALATION TID PRN (Reason: Wheezing) Patient Comments: INHALE 2 PUFFS BY MOUTH THREE TIMES DAILY NEEDED Trelegy Ellipta 200-62.5-25 mcg blister with device 1 inh INHALATION QDAY Held gabapentin 300 mg capsule 300 mg PO HS Hold Instructions: Resume on 12/23/24. TAKE GABAPENTIN 100MG THREE TIMES DAILY INSTEAD OF 300MG AT ONCE AT BEDTIME Patient Comments: TAKE 1 CAPSULE BY MOUTH TWICE DAILY Discontinued hydrocodone-acetaminophen [[place]] 10-325 mg Tablet 1 tab PO Q8H PRN (Reason: Pain) Qty: 0 No Action sucralfate 1 gram tablet 1 g PO BID Patient Comments: TAKE 1 TABLET BY MOUTH TWICE DAILY ON AN EMPTY STOMACH pantoprazole 40 mg tablet,delayed release (DR/EC) 40 mg PO QDAY Patient Comments: TAKE 1 TABLET BY MOUTH EVERY DAY levofloxacin 500 mg tablet 500 mg PO QDAY Qty: 4 0RF prednisone 50 mg tablet 50 mg PO QDAY Qty: 7 0RF sennosides [senna] 8.6 mg tablet 17.2 mg PO HS Patient Comments: TAKE TWO TABLETS BY MOUTH AT BEDTIME FOR CONSTIPATION calcium carbonate-vitamin D3 600 mg-10 mcg (400 unit) tablet 1 tab PO QDAY Patient Comments: TAKE ONE TABLET BY MOUTH EVERY DAY VITAMIN Referrals: Luke Saab PA-C [Primary Care Provider] - Patient/Caregiver Discharge Instructions Other Discharge Activity Instructions:: Patient is recommended to discontinue gabapentin 300 mg at bedtime. Patient is recommended to substitute gabapentin bedtime dose with 100 mg to be taken 3 times daily in divided doses of 100 mg morning, noon, evening Patient is recommended to discontinue 10 mg hydrocodone and only to continue with 5 mg with a max dose of 15 mg daily Patient is also being sent home on Narcan solution to be used as needed in case of opioid overdose. Patient is recommended to protect from polypharmacy with multiple medications that may lead to lethargy including cyclobenzaprine, gabapentin, hydrocodone and any other medications that may lead to the patient developing drowsiness Patient will be sent home with home health with physical therapy services to improve functional mobility. Education Materials: Understanding Chronic Pain, Managing Chronic Pain: Medicines, Taking Opioid Medicines Print Language: Swedish Stand Alone Forms: Deidre Award Info., Patient Portal Info Letter, Work/Release Restrictions Discharge Order Discharge Orders: Discharge (Routine); Ordered 11/26/24 Ordered By: John Guillen Quality Discharge Quality Measures none
--- NOTE | 2024-11-28 08:45 | PC.CC ---
Addendum entered by Hoa Collins RN 11/28/24 10:03: Pt booked with [facility] pending soc Original Note: Referrals sent for HH, no preference documented for agency
--- NOTE | 2024-11-30 08:47 | PC.CM ---
Addendum entered by Anitra Mariscal RN 12/01/24 15:54: [facility] will see patient on 12/02. Original Note: [facility] called me and stated they are not able to accept patient's insurance. They declined patient. I sent a new referral to [facility].
== END 2024-11-26 13:30 | disposition home health service (06) | DRG 917 ==
LOC: SERX 22:34 → SERHOLD 23:54 → S3NX 11-25 02:45
PROVIDERS: Nurse Practitioner Primary Care; Student in an Organized Health Care Education/Training Program; Admitting Provider Internal Medicine; Emergency Provider Emergency Medicine; PCP Physician Assistant; Visit Provider Internal Medicine
DX: T40.2X1A Poisoning by other opioids, accidental (unintentional), initial encounter (principal); G92.8 Other toxic encephalopathy; M54.9 Dorsalgia, unspecified; J43.9 Emphysema, unspecified; G89.29 Other chronic pain; M19.90 Unspecified osteoarthritis, unspecified site; K21.9 Gastro-esophageal reflux disease without esophagitis; E86.0 Dehydration; Z79.891 Long term (current) use of opiate analgesic; Z99.81 Dependence on supplemental oxygen; Z87.891 Personal history of nicotine dependence; Z79.51 Long term (current) use of inhaled steroids; Z79.899 Other long term (current) drug therapy
CPT/HCPCS: 36415; 70450; 71046; 80053; 80307; 80320; 80329; 81001; 82140; 83735; 84100; 84443; 84484; 85025; 85610; 85730; 92526; 92610; 93005; 93225; 96127; 96360; 97162; 99285; G0378; J1643; J2310; J3480; J7030; G0480

== ENCOUNTER 2025-09-13 18:37 | Emergency (ER) | payer MEDICARE, MEDICAID, SELFPAY ==
[2025-09-13 18:39] VITALS: BP 135/86; PULSE 83; RESP 20; TEMP 36.7; O2SAT 98; BMI 16.0
[2025-09-13 18:41] VITALS: PULSE 86; RESP 24; O2SAT 88
[2025-09-13 19:01] VITALS: BP 123/83; PULSE 80; RESP 17; O2SAT 96
--- NOTE | 2025-09-13 19:03 | PD.EDSOB ---
ED SOB =RME/HPI General Chief Complaint: Shortness of Breath/Dyspnea Stated Complaint: SOB Time Seen by Provider: 09/13/25 19:03 Arrival date/time: 09/13/25 18:37 RME / HPI RME / HPI Narrative: Dr. Hilton?s Main ED Evaluation: 80yo male with a history of COPD on 2L/NC PRN BIBA from home presents to the ED for a chief complaint of shortness of breath x 3 days. Patient reports an associated produtive cough with green phlegm. Patient denies any fever, chills, chest pain, or any other associated symptoms. He is a former tobacco smoker (quit 20+ years ago). NKA. Related Data Home Medications ?Medication ?Instructions ?Recorded ?Confirmed albuterol sulfate 90 mcg/actuation 2 puff inhalation TID PRN Wheezing 06/19/21 06/21/21 aerosol inhaler (Ventolin HFA) alendronate 70 mg tablet 70 mg PO QWEEK 06/19/21 06/21/21 baclofen 10 mg tablet 10 mg PO BID 06/19/21 06/21/21 cyclobenzaprine 10 mg tablet 10 mg PO HS 06/19/21 06/21/21 fluticasone furoate 200 1 inh inhalation DAILY 06/19/21 06/21/21 mcg-vilanterol 25 mcg/dose inhalation powder (Breo Ellipta) gabapentin 300 mg capsule 300 mg PO HS 06/19/21 11/25/24 Held on 11/25/24. Instructions: Resume on 12/23/24. TAKE GABAPENTIN 100MG THREE TIMES DAILY INSTEAD OF 300MG AT ONCE AT BEDTIME ipratropium 20 mcg-albuterol 100 1 puff inhalation BID 06/19/21 11/25/24 mcg/actuation mist for inhalation (Combivent Respimat) pantoprazole 40 mg tablet,delayed 40 mg PO QDAY 06/19/21 11/25/24 release sucralfate 1 gram tablet 1 g PO BID 06/19/21 06/21/21 calcium 600 mg (as 1 tab PO QDAY 11/25/24 11/25/24 carbonate)-vitamin D3 10 mcg (400 unit) tablet fluticasone fur. 200 mcg-umeclid 1 inh inhalation QDAY 11/25/24 11/25/24 62.5 mcg-vilant 25 mcg inhalat.powder (Trelegy Ellipta) sennosides 8.6 mg tablet (senna) 17.2 mg PO HS 11/25/24 11/25/24 Previous Rx's ?Medication ?Instructions ?Recorded levofloxacin 500 mg tablet 500 mg PO QDAY #4 tabs 02/11/24 prednisone 50 mg tablet 50 mg PO QDAY #7 tabs 06/29/24 naloxone 4 mg/actuation nasal 4 mg intranasal Q3M PRN opioid 11/25/24 spray (Narcan) overdose #2 ea albuterol sulfate 90 mcg/actuation 2 inh inhalation Q4H PRN shortness 09/13/25 breath activated powder inhaler of breath #1 ea doxycycline hyclate 100 mg capsule 100 mg PO BID #20 caps 09/13/25 Allergies Allergy/AdvReac Type Severity Reaction Status Date / Time No Known Allergies Allergy Verified 11/24/24 18:57 Review of Systems Review of Systems Systems Reviewed: All systems reviewed, normal except as documented Past Medical History Past Medical History NEUROLOGIC: Positive Neurological Disorders, Peripheral Neuropathy and Migraine; Negative Cerebrovascular Accident, Dementia, Alzheimer's Disease, Parkinson's Disease, Brain Tumor, Meningitis, Seizures, Epilepsy, Multiple Sclerosis, Cerebral Palsy, Amyotrophic Lateral Sclerosis (ALS/Linda Gehrig's), Guillain-Carey Syndrome, Spina Bifida, Paralysis, Coreas's Palsy, Subdural Hematoma, Head Trauma, Spinal Cord Injury or Traumatic Brain Injury CARDIAC: Negative Cardiac Disorders, Myocardial Infarction, Cardiac Arrhythmia, Atrial Fibrillation, Angina, Heart Murmur, Coronary Artery Disease, Peripheral Vascular Disease, Hypercholesterolemia, Aneurysm, Congestive Heart Failure, Congenital Heart Disease, Valvular Heart Disease, Rheumatic Fever, Cardiomyopathy, Edema, Pericarditis, Cellulitis, Deep Vein Thrombosis, Hypertension, Hypotension or Varicose Veins RESPIRATORY: Positive Chronic Obstructive Pulmonary Disease (COPD), Asthma (copd) and Emphysema; Negative Bronchitis, Pneumonia, Pulmonary Fibrosis, Cystic Fibrosis, Tuberculosis, Pulmonary Embolism, Pulmonary Edema or Sleep Apnea GASTROINTESTINAL: Positive Gastrointestinal Disorders, Diverticulitis and Gastroesophageal Reflux Disease; Negative Hepatitis, Cirrhosis, Pancreatitis, Celiac Disease, Gall Bladder Disease, Gastrointestinal Bleed, Esophageal Varices, Mckeon's Esophagus, Colitis, Ulcerative Colitis, Diverticulosis, Ulcer, Colorectal Cancer, Irritable Bowel, Crohn's Disease, Obstructive Bowel, Hiatal Hernia, Hemorrhoids or Obesity GENITOURINARY: Negative Genitourinary Disorders, Renal Disease, Kidney Stones, Polycystic Kidney Disease, Neurogenic Bladder, Inguinal Hernia, Dialysis, Prostate Cancer or Benign Prostatic Hyperplasia REPRODUCTIVE: Negative Fibroids or Testicular Cancer MUSCULOSKELETAL: Positive Musculoskeletal Disorders and Arthritis; Negative Muscular Dystrophy, Myasthenia Gravis, Marfan's Syndrome, Bone Cancer, Rheumatoid Arthritis, Osteoporosis, Degenerative Disk Disease, Gout, Scoliosis, Fibromyalgia, Fractures, Degenerative Joint Disease, Osteomyelitis or Poliovirus ENT: Positive Cataracts; Negative Glaucoma, Blind, Retinal Detachment, Macular Degeneration, Ear Infection, Deafness, Head Trauma or Eye Prosthesis ENDOCRINE: Negative Endocrine Disorders, Diabetes Mellitus Type 1, Diabetes Mellitus Type 2, Hypoglycemia, [place]'s Syndrome, [place]'s Disease, Hyperthyroidism, Hypothyroidism, Parathyroid Disease, Pituitary Disease, Systemic Lupus Erythematosus, Syndrome of Inappropriate Antidiuretic Hormone (SIADH), Adrenal Disease or Graves' Disease HEMATOLOGIC: Negative Blood Disorders, Anemia, Leukemia, Hemophilia, Thalassemia, Sickle Cell Disease or Clotting Problems PSYCHO/SOCIAL: Negative Psychiatric Problems, Schizophrenia, Recreational Drug Use, Bipolar Disorder, Depression, Anxiety, Behavior Problems, Self-Mutilation, Attention Deficit Disorder, Attention Deficit Hyperactivity Disorder, Depression, Post Traumatic Stress Disorder or Eating Disorder OTHER HISTORY: Positive Hospitalization; Negative Autoimmune Disease, Down Syndrome, Autism, Developmental Delay, Shingles, Falls, Blood Transfusions, Blood Transfusion Reaction, Anesthesia Reactions, Organ Transplant, Chemotherapy, Radiation Therapy, Hyperbaric Therapy, MRSA, VRSA, Vancomycin-Resistant Enterococci, Human Immunodeficiency Virus (HIV), Chicken Pox, Measles, Mumps, Rubella (Hebrew Measles), Pertussis, Clostridium Difficile, Cancer, Colorectal Cancer, Lung Cancer, Prostate Cancer or Testicular Cancer Family History FAMILY HISTORY: Negative Family Psychiatric Problems, Family Respiratory Disorders, Family Cardiac Disorders, Family Gastrointestinal Problems, Family Cancer, Family Surgery or Family Anesthesia Reaction Surgical History SURGICAL: Negative Cardiac Surgery, Open Heart Surgery, Coronary Artery Bypass Graft, Valve Replacement, Vascular Surgery, Coronary Stent, Cardiac Catheterization, Pacemaker, Angiogram, Auto Implanted Cardiovert Defib, Carotid Endarterectomy, Endocrine Surgery, Thyroidectomy, Ear Surgery, Tympanostomy Tube, Eye Surgery, Nose Surgery, Oral Surgery, Tonsillectomy, Adenoidectomy, Cochlear Implant, Corneal Transplant, Throat Surgery, Abdominal Surgery, Tracheostomy, Gastric Bypass Surgery, Gastrostomy, Bowel Surgery, Nephrectomy, Transurethral Resection, Joint Replacement, Amputation, Open Reduction Internal Fixation, Arthroscopy, Neurologic Surgery, Brain Shunt, Vasectomy or Organ Transplant Social History SMOKING STATUS: Never smoker SECOND HAND EXPOSURE: No SUBSTANCE USE: does not use ED Exam Narrative Physical exam: Generally patient is alert mildly dyspneic elderly appearing male, heart regular rate and rhythm, lungs show mild rhonchi bilaterally with fair to good air exchange but with distant breath sounds, extremities show no edema, neurologic exam [place] Coma Scale of 15 without focal motor deficit, abdomen is soft nondistended nontender, skin is cool pale and dry Course Course Course Narrative: CXR is ordered for determining the etiology of shortness of breath. Quality Measures none Orders Category Date Time Status Bedside COVID-19 Antigen Test NOW Care 09/13/25 19:06 Active Bedside COVID-19 Antigen Test NOW Care 09/13/25 19:09 Completed Bedside Influenza A&B Antigen Test NOW Care 09/13/25 19:09 Completed EKG (ED ONLY) *Do not use* NOW Care 09/13/25 19:09 Completed EKG (ED Only) Stat Exams 09/13/25 19:09 Draft XR chest 1V portable Stat Exams 09/13/25 19:09 Completed CBC Stat Lab 09/13/25 19:22 Completed CMP [Comprehensive Metabolic Panel] Stat Lab 09/13/25 19:22 Completed FLU A&B [Influenza A & B Rapid Panel] Stat Lab 09/13/25 19:07 Completed Troponin I Stat Lab 09/13/25 19:22 Completed VBG [Venous Blood Gas] Stat Lab 09/13/25 19:22 Completed ALBUTEROL RT 0.5ml [Proventil Rt 0.5ml] Med 09/13/25 19:09 Discontinued 10 mg INH X1 ONE Azithromycin Po [Zithromax PO] Med 09/13/25 20:01 Discontinued 500 mg PO X1 ONE Ipratropium Bryson Rt Nemo [Atrovent Rt Nemo] Med 09/13/25 19:09 Discontinued 1 mg INH X1 ONE Sodium Chloride Rt Nemo 0.9% [NS Rt Nemo 0.9%] Med 09/13/25 19:09 Active 3 ml INH PRN PRN cefTRIAXone/D5w 1gm IV premix [Rocephin/D5w 1gm IV Med 09/13/25 20:01 Discontinued premix] 1 gm in 50 ml IV X1 predniSONE Med 09/13/25 19:09 Discontinued 40 mg PO X1 ONE Vital Signs Vital signs: Vital Signs Temperature 98.1 F 09/13/25 18:39 Pulse Rate 83 09/13/25 18:39 Respiratory Rate 20 09/13/25 18:39 Blood Pressure 135/86 H 09/13/25 18:39 Pulse Oximetry (%) 98 09/13/25 18:39 Oxygen Delivery Method Nasal Cannula 09/13/25 18:39 Oxygen Flow Rate 4 09/13/25 18:39 Shortness of Breath / Dyspnea MDM Narrative MDM Narrative:: Scribe Attestation: 09/13/25 - Macarena Queen am scribing for and in the presence of Dr. Hilton. COVID and flu swabs were negative. Chest x-ray shows chronic changes without definitive infiltrate. There is no fever or leukocytosis. Patient received albuterol 10 mg and Atrovent 1 mg Med-Neb treatment over 1 hour as well as prednisone 40 mg p.o. Patient also received Rocephin 1 g IV and azithromycin 500 mg p.o. Patient has a history of COPD. He uses oxygen at home as needed. After the breathing treatment the patient feels well and feels very comfortable going home. I will discharge the patient on doxycycline to be taken as prescribed. Albuterol inhaler to be used as prescribed. Follow-up with his doctor. Continue all current medications including the oxygen. Return to ER as needed or if condition worsens. Patient data External records reviewed:: [facility] previous records (Per chart review, patient was admitted here on 11/24/24 for AMS.) and EMS form Clinical information provided by:: patient Social determinants that could affect healthcare access:: none Patient has the following chronic illnesses:: COPD (on 2L/NC), GERD, osteoarthritis, chronic back pain How is presenting disease/condition affected by chronic disease/condition?: exacerbated by Evaluation data The following diagnostics were reviewed and interpreted by me:: lab results, radiology exam(s) and EKG tracing(s) Lab and/or radiology exams considered but not ordered:: none Interpretation Summary: [facility] Report Signed Patient: YVONNE DEGROOT [facility]. Record#: [id number] Birthdate: 1945 Age/Sex: 80 / M Location: [facility] Attending Dr: Ordering Physician: Steve Hilton DO Date of Service: 09/13/25 Procedure(s): XR chest 1V portable Accession Number(s): [id number] cc: Asad Charles MD; Chris Martinez MD; Steve Hilton DO~ EXAMINATION: AP chest single view TECHNIQUE: AP portable upright chest single view Date and time: September 13, 2025, 1931 hours, comparison November 24, 2024 INDICATIONS: Chest pain shortness of breath today. FINDINGS: COPD with severe bullous change in both lungs Pulmonary fibrosis at the lung bases Normal heart size No pulmonary edema or kaleb pneumonia Severe osteopenia IMPRESSION: COPD with severe bullous change in both lungs Pulmonary fibrosis at the lung bases Dictated By: Chris Martinez MD Signed By: <Electronically signed by Chris Martinez MD in OV> 09/13/252032 Medications / Prescriptions Medications or Prescriptions considered but not ordered:: none Medication administrations:: Medication Administration History Sodium Chloride (Sodium Chloride Rt Nemo 0.9% 3 Ml Nebu) 3 ml INH PRN PRN PRN Reason: SOLN Stop: 10/13/25 19:08 Discontinued Medications Albuterol (Albuterol Rt 2.5 Mg/0.5 Ml Nebu) 10 mg INH X1 ONE Stop: 09/13/25 19:10 Last Admin: 09/13/25 19:46 Dose: 10 mg Documented By: ALEJANDRO Azithromycin (Azithromycin 250 Mg Tablet) 500 mg PO X1 ONE Stop: 09/13/25 20:02 Last Admin: 09/13/25 20:32 Dose: 500 mg Documented By: DUNG Ceftriaxone Sodium/Dextrose (Rocephin/D5w 1gm Iv Premix) 1 gm in 50 mls @ 100 mls/hr IV X1 ONE Stop: 09/13/25 20:30 Last Admin: 09/13/25 20:32 Dose: 100 mls/hr Documented By: DUNG Ipratropium Bryson (Ipratropium Rt 0.5 Mg/ 2.5 Ml Nebu) 1 mg INH X1 ONE Stop: 09/13/25 19:10 Last Admin: 09/13/25 19:46 Dose: 1 mg Documented By: ALEJANDRO Prednisone (Prednisone 20 Mg Tablet) 40 mg PO X1 ONE Stop: 09/13/25 19:10 Last Admin: 09/13/25 19:22 Dose: 40 mg Documented By: DUNG see above Consultations Consultation(s) initiated? (list below): No Diagnosis Shortness of Breath Differential Diagnosis: other (See MDM) Most likely diagnosis given after review of the tests above:: see clinical impression below Admission Indicated Admission indicated?: not indicated Admission Request Was there a request for admission?: No Disposition Plan Disposition Plan: Discharge Discharge Attestation Discharge Attestation: The patient and all family members were given an opportunity to ask questions and understood the discharge instructions. Discharge instructions specifically effects, indications for sooner follow up or return to the emergency department, and the expected course of current diagnosis. Patient condition: Stable Discharge Plan Plan Patient Disposition: HOME (Self Care) Prescriptions/Referrals Prescriptions/Med Rec: New doxycycline hyclate 100 mg capsule 100 mg PO BID Qty: 20 0RF albuterol sulfate 90 mcg/actuation aerosol powdr breath activated 2 inh inhalation Q4H PRN (Reason: shortness of breath) Qty: 1 0RF No Action cyclobenzaprine 10 mg tablet 10 mg PO HS alendronate 70 mg tablet 70 mg PO QWEEK Patient Comments: TAKE 1 TABLET BY MOUTH 1 TIME A WEEK baclofen 10 mg tablet 10 mg PO BID Patient Comments: TAKE 1 TABLET BY MOUTH TWICE DAILY WITH FOOD OR MILK Breo Ellipta 200-25 mcg/dose blister with device 1 inh INHALATION DAILY Patient Comments: INHALE 1 PUFF BY MOUTH EVERY DAY Combivent Respimat 20-100 mcg/actuation mist 1 puff INHALATION BID Patient Comments: INHALE 1 PUFF BY MOUTH TWICE DAILY sucralfate 1 gram tablet 1 g PO BID Patient Comments: TAKE 1 TABLET BY MOUTH TWICE DAILY ON AN EMPTY STOMACH pantoprazole 40 mg tablet,delayed release (DR/EC) 40 mg PO QDAY Patient Comments: TAKE 1 TABLET BY MOUTH EVERY DAY gabapentin 300 mg capsule 300 mg PO HS Patient Comments: TAKE 1 CAPSULE BY MOUTH TWICE DAILY albuterol sulfate [Ventolin HFA] 90 mcg/actuation HFA aerosol inhaler 2 puff INHALATION TID PRN (Reason: Wheezing) Patient Comments: INHALE 2 PUFFS BY MOUTH THREE TIMES DAILY NEEDED levofloxacin 500 mg tablet 500 mg PO QDAY Qty: 4 0RF prednisone 50 mg tablet 50 mg PO QDAY Qty: 7 0RF Trelegy Ellipta 200-62.5-25 mcg blister with device 1 inh INHALATION QDAY sennosides [senna] 8.6 mg tablet 17.2 mg PO HS Patient Comments: TAKE TWO TABLETS BY MOUTH AT BEDTIME FOR CONSTIPATION calcium carbonate-vitamin D3 600 mg-10 mcg (400 unit) tablet 1 tab PO QDAY Patient Comments: TAKE ONE TABLET BY MOUTH EVERY DAY VITAMIN naloxone [Narcan] 4 mg/actuation spray,non-aerosol 4 mg intranasal Q3M PRN (Reason: opioid overdose) Qty: 2 1RF Rx Instructions: spray 1 dose into ONE nostril; alternate nostrils w each dose until help arrives Referrals: Asad Charles MD [Primary Care Provider, Family Practice] - In 1 week Problem List Clinical Impression: COPD exacerbation Patient/Caregiver Discharge Instructions Education Materials: Asthma and COPD Additional Instructions: Use the albuterol inhaler and take the antibiotic as prescribed. Continue current medications. Follow-up with your doctor. Return to ER as needed or if condition worsens. Print Language: Tuval[place] Stand Alone Forms: [facility] Award Info., Patient Portal Info Letter
--- NOTE | 2025-09-13 19:09 | XR_ITS ---
EXAMINATION: AP chest single view TECHNIQUE: AP portable upright chest single view Date and time: September 13, 2025, 1931 hours, comparison November 24, 2024 INDICATIONS: Chest pain shortness of breath today. FINDINGS: COPD with severe bullous change in both lungs Pulmonary fibrosis at the lung bases Normal heart size No pulmonary edema or kaleb pneumonia Severe osteopenia IMPRESSION: COPD with severe bullous change in both lungs Pulmonary fibrosis at the lung bases
--- NOTE | 2025-09-13 19:09 | EKG_ITS ---
[facility] Test Date: 2025-09-13 Pat Name: YVONNE DEGROOT Department: Room: - Gender: Male [employer]: : 1945 Requested By: Steve Lauren Order Number: [id number] Reading MD: Steve Lauren Measurements Intervals [place] Rate: 79 P: -3 MI: 184 QRS: -62 QRSD: 91 T: 72 QT: 348 QTc: 399 Interpretive Statements SINUS RHYTHM LEFT ANTERIOR FASCICULAR BLOCK [QRS AXIS <= -45, QR IN I, RS IN II] POSSIBLE ANTERIOR MYOCARDIAL INFARCTION , OF INDETERMINATE AGE [30 ms Q WAVE IN V3/V4, OR R < 0.2 mV IN V4] Compared to ECG 11/24/2024 18:49:29 No significant changes /store/S0/[id number]
[2025-09-13 19:27] LABS: Base Excess, Venous 4 (-3-3); O2 Saturation, Venous 72 % (96-97); PCO2, Venous 42 mmHg (36-56); PO2, Venous 36 mmHg (15-58); pH, Venous 7.44 (7.33-7.66)
[2025-09-13 19:29] LABS: Basophils # (Auto) 0.0 Thou/mm3 (0.0-0.2); Basophils % (Auto) 1 % (0-2.5); Eosinophils # (Auto) 0.1 Thou/mm3 (0.0-0.5); Eosinophils % (Auto) 1 % (0-10); Hematocrit 40.5 % (41.0-53.0); Hemoglobin 13.6 g/dL (13.5-16.0); Immature Granulocytes Auto 0.02 Thou/mm3 (0.00-0.00); Lymphocytes # (Auto) 1.6 Thou/mm3 (1.0-4.8); Lymphocytes % (Auto) 20 % (10-50); Mean Corpuscular HGB Conc 33.6 g/dl (31.0-37.0); Mean Corpuscular Hemoglobin 31.3 pg (25.0-35.0); Mean Corpuscular Volume 93 fL (80-100); Monocytes # (Auto) 0.5 Thou/mm3 (0.0-0.8); Monocytes % (Auto) 6 % (0-12); Neutrophils # (Auto) 5.5 Thou/mm3 (1.8-7.7); Neutrophils % (Auto) 72 % (37-80); Nucleated Red Blood Cell # 0.00 Thou/mm3 (0.00-0.00); Nucleated Red Blood Cell % 0 /100 WBC (0); Platelet Count 265 Thou/mm3 (140-440); RDW Standard Deviation 46.5 fL (35.1-43.9); Red Blood Count 4.34 Miln/mm3 (4.50-5.90); White Blood Count 7.7 Thou/mm3 (3.8-10.6)
[2025-09-13 19:35] LABS: Influenza A Ag Negative; Influenza B Ag Negative
[2025-09-13 19:46] VITALS: PULSE 95
[2025-09-13] MEDS: IPRATROPIUM RT 0.5 MG/ 2.5 ML NEBU 1 MG INH (19:46)
[2025-09-13] MEDS: ALBUTEROL RT 2.5 MG/0.5 ML NEBU 10 MG INH (19:46)
[2025-09-13 19:48] LABS: Anion Gap 10 (7-16); BUN/Creatinine Ratio 8 Ratio (12-20); Blood Urea Nitrogen 5 mg/dL (9-23); Calcium 9.6 mg/dL (8.3-10.6); Carbon Dioxide 25.9 mMol/L (20.0-31.0); Chloride 104 mMol/L (98-107); Creatinine (Component) 0.6 mg/dL (0.6-1.3); Estimated Creatinine Clearance 82.2 mL/min (>60); Glucose 92 mg/dL (74-106); Osmolality,Calculated 276 (275-295); Potassium 3.7 mMol/L (3.4-5.1); Sodium 140 mMol/L (136-145); eGFR > 60 See Note
[2025-09-13 19:49] VITALS: PULSE 106; RESP 21; O2SAT 96
[2025-09-13 19:49] LABS: Alanine Aminotransferase < 7 U/L (10-49); Albumin, Serum 4.1 gm/dL (3.4-4.8); Albumin/Globulin Ratio 1.6 (1.2-2.2); Alkaline Phosphatase 74 U/L (46-116); Aspartate Amino Transferase 15 U/L (0-34); Bilirubin,Total 0.7 mg/dL (0.3-1.2); Calcium (Corrected) 9.6 mg/dL (8.5-10.1); Globulin 2.6 gm/dL (2.3-3.5); Total Protein 6.7 gm/dL (5.7-8.2); Troponin I < 0.020 ng/mL (0.0-0.045)
[2025-09-13] MEDS: AZITHROMYCIN 250 MG TABLET 500 MG PO (20:32)
[2025-09-13] MEDS: cefTRIAXone/D5w 1gm IV premix 1 GM/50 ML BAG IV (20:32)
[2025-09-13 21:01] VITALS: BP 127/82; PULSE 100; RESP 18; O2SAT 92
== END 2025-09-13 21:02 | disposition home or self-care (01) ==
PROVIDERS: Emergency Provider Emergency Medicine; PCP Family Medicine
DX: J44.1 Chronic obstructive pulmonary disease with (acute) exacerbation (principal); J84.10 Pulmonary fibrosis, unspecified; Z79.51 Long term (current) use of inhaled steroids
CPT/HCPCS: 36415; 71045; 80053; 82803; 84484; 85025; 87502; 87811; 93005; 94640; 94644; 99284; J0696; J7512; J7602; J7644; A9270; J7611